=== PATIENT | female | born 1990 | race Caucasian/White ===

== ENCOUNTER → 2018-02-16 10:50 | Outpatient (CLI) | payer OTHER, SELFPAY ==
[2018-02-16 12:45] LABS: T4 Free Direct 1.03 ng/dL (0.76-1.46); Thyroid Stim Hormone (TSH) 3.04 uIU/mL (0.358-3.74)
== END ==
PROVIDERS: Family Provider Family Medicine; PCP Family Medicine; Visit Provider Family Medicine
DX: E03.9 Hypothyroidism, unspecified (principal)
CPT/HCPCS: 36415; 84439; 84443

== ENCOUNTER → 2019-02-06 | Outpatient (CLI) | payer OTHER, SELFPAY ==
[2019-02-06 16:35] LABS: T4 Total, Thyroxin 10.6 ug/dL (4.8-13.9); Thyroid Stim Hormone (TSH) 4.43 uIU/mL (0.358-3.74)
== END | disposition home or self-care (01) ==
LOC: MFPLAB 14:10
PROVIDERS: Family Provider Family Medicine; PCP Family Medicine; Referring Provider Family Medicine; Visit Provider Family Medicine
DX: E03.9 Hypothyroidism, unspecified (principal)
CPT/HCPCS: 36415; 84436; 84443

== ENCOUNTER → 2019-05-24 | Outpatient (CLI) | payer OTHER, SELFPAY ==
[2016-02-13 10:20] VITALS: BMI 32.5
[2019-05-24 16:08] LABS: T4 Total, Thyroxin 12.6 ug/dL (4.8-13.9); Thyroid Stim Hormone (TSH) 0.03 uIU/mL (0.358-3.74)
== END | disposition home or self-care (01) ==
LOC: MFPLAB 14:56
PROVIDERS: Family Provider Family Medicine; PCP Family Medicine; Referring Provider Family Medicine; Visit Provider Family Medicine
DX: E03.9 Hypothyroidism, unspecified (principal)
CPT/HCPCS: 36415; 84436; 84443

== ENCOUNTER → 2019-07-20 11:43 | Outpatient (CLI) | payer OTHER, SELFPAY ==
[2016-02-13 10:20] VITALS: BMI 32.5
[2019-07-20 14:35] LABS: T4 Total, Thyroxin 9.6 ug/dL (4.8-13.9); Thyroid Stim Hormone (TSH) 1.94 uIU/mL (0.358-3.74)
== END ==
PROVIDERS: Family Provider Family Medicine; PCP Family Medicine; Referring Provider Family Medicine; Visit Provider Family Medicine
DX: E03.9 Hypothyroidism, unspecified (principal)
CPT/HCPCS: 36415; 84436; 84443

== ENCOUNTER → 2020-02-26 | Outpatient (CLI) | payer OTHER, SELFPAY ==
[2016-02-13 10:20] VITALS: BMI 32.5
[2020-02-26 18:33] LABS: T4 Total, Thyroxin 9.1 ug/dL (4.8-13.9); Thyroid Stim Hormone (TSH) 1.39 uIU/mL (0.358-3.74)
== END | disposition home or self-care (01) ==
LOC: LABSPEC 11:00
PROVIDERS: PCP Family Medicine; Referring Provider Family Medicine; Visit Provider Family Medicine
DX: J02.9 Acute pharyngitis, unspecified (principal); E03.9 Hypothyroidism, unspecified
CPT/HCPCS: 36415; 84436; 84443; 87070

== ENCOUNTER → 2020-08-09 10:19 | Outpatient (CLI) | payer OTHER, SELFPAY ==
[2016-02-13 10:20] VITALS: BMI 32.5
[2020-08-09 12:00] LABS: Absolute Lymphocyte Count 1.52 X10^3/uL (0.83-4.51); Absolute Neutrophil Count 3.4 X10^3/uL (2.0-7.7); Basophil# 0.03 X10^3/uL; Basophil% 0.5 % (0-1); Eosinophils% 3.5 % (0-5); Hematocrit 36.8 % (37-47); Hemoglobin 12.5 g/dL (12.0-15.0); Lymphocyte # 1.52 X10^3/ul (4.0); Mean Corpuscular Hgb 30.5 pg (27.0-32.0); Mean Corpuscular Volume 89.8 fL (81-99); Mean Platelet Vol. 10.6 fl (6.2-12.0); Monocyte# 0.43 X10^3/uL; Monocyte% 7.6 % (0-10); NRBC Flagged by Analyzer 0 % (0-5); Neutrophil # 3.44 X10^3/uL (2.7-7.7); Platelet Count 302 K/mm3 (150-450); RBC Distribution Width CV 11.5 % (11.6-14.6); RBC Distribution Width SD 37.4 fl (35.1-43.9); White Blood Count 5.6 K/mm3 (4.4-11.0)
[2020-08-09 12:43] LABS: Vitamin B12 741 pg/mL (211-911)
[2020-08-09 14:03] LABS: AST(SGOT) 21 U/L (15-37); Alanine Aminotransfer ALT/SGPT 23 U/L (13-56); Albumin, Serum 3.8 g/dL (3.2-5.0); Alkaline Phosphatase 54 U/L (45-117); Anion Gap 8 (5-15); BUN 13 mg/dL (7-18); Calcium,Total 9.2 mg/dL (8.5-10.1); Chloride 107 mmol/L (98-107); Creatinine, Serum 0.72 mg/dL (0.55-1.02); EST Glomerular Filtration Rate 102 mL/min (>60); Est Glom Filt Rate - Afr Amer 123 mL/min (>60); Globulin 3.7 g/dL (2.2-4.2); Glucose 102 mg/dL (74-106); Potassium 3.8 mmol/L (3.5-5.1); Protein, Total 7.5 g/dL (6.4-8.2); Sodium Level 139 mmol/L (136-145); Thyroid Stim Hormone (TSH) 1.97 uIU/mL (0.358-3.74)
== END ==
PROVIDERS: PCP Family Medicine; Referring Provider Family Medicine; Visit Provider Family Medicine
DX: R20.2 Paresthesia of skin (principal); R20.0 Anesthesia of skin
CPT/HCPCS: 36415; 80053; 82607; 82746; 84443; 85025

== ENCOUNTER 2021-10-20 10:36 | Outpatient (CLI) | payer OTHER, SELFPAY ==
[2021-10-20 13:03] LABS: Cholesterol 222 mg/dL (200); High Density Lipoprotein 49 mg/dL; T4 Total, Thyroxin 10.7 ug/dL (4.8-13.9); Thyroid Stim Hormone (TSH) 2.29 uIU/mL (0.358-3.74); Triglycerides 92 mg/dL; Very Low Density Lipoprotein 18 mg/dL (5-40)
== END 2021-10-20 23:59 | disposition home or self-care (01) ==
LOC: MFPLAB 10:38
PROVIDERS: PCP Family Medicine; Referring Provider Family Medicine; Visit Provider Family Medicine
DX: E03.9 Hypothyroidism, unspecified (principal); Z13.220 Encounter for screening for lipoid disorders
CPT/HCPCS: 36415; 80061; 84436; 84443

== ENCOUNTER → 2022-10-20 | Outpatient (CLI) | payer OTHER, SELFPAY ==
[2022-10-20 13:15] LABS: T4 Total, Thyroxin 8.8 ug/dL (4.8-13.9); Thyroid Stim Hormone (TSH) 3.58 uIU/mL (0.358-3.74)
== END | disposition home or self-care (01) ==
LOC: MFPLAB 09:41
PROVIDERS: PCP Family Medicine; Referring Provider Family Medicine; Visit Provider Family Medicine
DX: E03.9 Hypothyroidism, unspecified (principal)
CPT/HCPCS: 36415; 84436; 84443

== ENCOUNTER → 2023-10-22 | Outpatient (CLI) | payer OTHER, SELFPAY ==
[2023-10-22 13:30] LABS: T4 Total, Thyroxin 10.9 ug/dL (4.8-13.9); Thyroid Stim Hormone (TSH) 0.91 uIU/mL (0.358-3.74)
== END | disposition home or self-care (01) ==
LOC: MFPLAB 10:00
PROVIDERS: PCP Family Medicine; Visit Provider Family Medicine
DX: E03.9 Hypothyroidism, unspecified (principal)
CPT/HCPCS: 36415; 84436; 84443

== ENCOUNTER → 2024-09-20 | Outpatient (CLI) | payer OTHER, SELFPAY ==
[2024-09-20 12:22] LABS: Absolute Lymphocyte Count 1.98 X10^3/uL (0.83-4.51); Absolute Neutrophil Count 4.3 X10^3/uL (2.0-7.7); Basophil# 0.06 X10^3/uL; Basophil% 0.8 % (0-1); Eosinophil# 0.34 X10^3/uL; Eosinophils% 4.7 % (0-5); Hematocrit 39.5 % (37-47); Hemoglobin 13.4 g/dL (12.0-15.0); Lymphocyte # 1.98 X10^3/ul (0.83-4.51); Lymphocyte % 27.5 % (19-41); Mean Corp Hgb Conc 33.9 g/dL (32-36); Mean Corpuscular Hgb 29.7 pg (27.0-32.0); Mean Corpuscular Volume 87.6 fL (81-99); Mean Platelet Vol. 10.4 fl (6.2-12.0); Monocyte# 0.52 X10^3/uL; Monocyte% 7.2 % (0-10); NRBC Flagged by Analyzer 0 % (0-5); Neutrophil # 4.28 X10^3/uL (2.7-7.7); Neutrophil % 59.4 % (47-70); Platelet Count 341 K/mm3 (150-450); RBC Distribution Width CV 11.9 % (11.6-14.6); RBC Distribution Width SD 38.6 fl (35.1-43.9); Red Blood Count 4.51 M/mm3 (4.2-5.4); White Blood Count 7.2 K/mm3 (4.4-11.0)
[2024-09-20 13:04] LABS: ALB/GLOB Ratio 1.4 RATIO (0.9-2.4); AST(SGOT) 29 U/L (<=31); Alanine Aminotransfer ALT/SGPT 23 U/L (<=34); Albumin, Serum 4.2 g/dL (3.5-5.0); Alkaline Phosphatase 67 U/L (35-104); Anion Gap 13 (5-15); BUN 12 mg/dL (4-19); BUN/Creat Ratio 15.2 RATIO (10-20); Calcium,Total 9.4 mg/dL (7.6-11.0); Carbon Dioxide 20.8 mmol/L (21.0-32.0); Chloride 105 mmol/L (98-108); Cholesterol 280 mg/dL (<=200); Creatinine, Serum 0.78 mg/dL (0.70-1.20); EST Glomerular Filtration Rate 104 (>60); Globulin 3.1 g/dL (2.2-4.2); Glucose 93 mg/dL (70-99); High Density Lipoprotein 40 mg/dL; Low Density Lipoprotein Calc. 214 mg/dL; Potassium 4.1 mmol/L (3.3-5.1); Protein, Total 7.3 g/dL (5.9-8.4); Sodium Level 139 mmol/L (133-145); Total Bilirubin 0.38 mg/dL (0.00-1.30); Triglycerides 133 mg/dL; Very Low Density Lipoprotein 27 mg/dL (5-40); cholesterol:hdl ratio screen 7.05
[2024-09-21 17:07] LABS: Lipoprotein A 203.4 nmol/L (<75.0)
== END | disposition home or self-care (01) ==
PROVIDERS: PCP Internal Medicine; Referring Provider Internal Medicine; Visit Provider Internal Medicine
DX: Z00.00 Encounter for general adult medical examination without abnormal findings (principal); Z82.49 Family history of ischemic heart disease and other diseases of the circulatory system; E03.9 Hypothyroidism, unspecified
CPT/HCPCS: 36415; 80053; 80061; 83695; 84443; 85025

== ENCOUNTER → 2024-10-17 | Outpatient (CLI) | payer OTHER, SELFPAY ==
[2024-10-17 13:55] LABS: ALB/GLOB Ratio 1.4 RATIO (0.9-2.4); AST(SGOT) 27 U/L (<=31); Alanine Aminotransfer ALT/SGPT 22 U/L (<=34); Albumin, Serum 4.1 g/dL (3.5-5.0); Alkaline Phosphatase 58 U/L (35-104); Anion Gap 13 (5-15); BUN 9 mg/dL (4-19); BUN/Creat Ratio 13.8 RATIO (10-20); Calcium,Total 8.9 mg/dL (7.6-11.0); Chloride 106 mmol/L (98-108); Cholesterol 145 mg/dL (<=200); Creatinine, Serum 0.69 mg/dL (0.70-1.20); EST Glomerular Filtration Rate 118 (>60); Globulin 2.9 g/dL (2.2-4.2); Glucose 90 mg/dL (70-99); High Density Lipoprotein 45 mg/dL; Low Density Lipoprotein Calc. 81 mg/dL; Potassium 4.1 mmol/L (3.3-5.1); Protein, Total 6.9 g/dL (5.9-8.4); Sodium Level 138 mmol/L (133-145); Triglycerides 95 mg/dL; Very Low Density Lipoprotein 19 mg/dL (5-40); cholesterol:hdl ratio screen 3.22
== END | disposition home or self-care (01) ==
LOC: BIMLAB 08:39
PROVIDERS: PCP Internal Medicine; Visit Provider Internal Medicine
DX: E78.5 Hyperlipidemia, unspecified (principal)
CPT/HCPCS: 36415; 80053; 80061

== ENCOUNTER → 2025-03-15 | Outpatient (CLI) | payer OTHER, SELFPAY ==
[2025-03-20 10:09] LABS: HPV APTIMA, High Risk Negative (Negative)
== END | disposition home or self-care (01) ==
LOC: LABSPEC 15:09
PROVIDERS: PCP Internal Medicine; Visit Provider Nurse Practitioner Family
DX: Z12.4 Encounter for screening for malignant neoplasm of cervix (principal)
CPT/HCPCS: 87624; 88175; G0145

== ENCOUNTER → 2025-03-26 | Outpatient (CLI) | payer OTHER, SELFPAY ==
[2025-03-26 12:53] LABS: AST(SGOT) 33 U/L (<=31); Alanine Aminotransfer ALT/SGPT 22 U/L (<=34); Albumin, Serum 4.2 g/dL (3.5-5.0); Alkaline Phosphatase 55 U/L (35-104); Anion Gap 11 (5-15); BUN 10 mg/dL (4-19); BUN/Creat Ratio 11.7 RATIO (10-20); Calcium,Total 9.4 mg/dL (7.6-11.0); Carbon Dioxide 21.3 mmol/L (21.0-32.0); Chloride 106 mmol/L (98-108); Cholesterol 156 mg/dL (<=200); Globulin 3.0 g/dL (2.2-4.2); Glucose 91 mg/dL (70-99); Low Density Lipoprotein Calc. 87 mg/dL; Potassium 4.2 mmol/L (3.3-5.1); Triglycerides 105 mg/dL; Very Low Density Lipoprotein 21 mg/dL (5-40); cholesterol:hdl ratio screen 3.24
== END | disposition home or self-care (01) ==
LOC: BIMLAB 09:19
PROVIDERS: PCP Internal Medicine; Referring Provider Internal Medicine; Visit Provider Internal Medicine
DX: E78.5 Hyperlipidemia, unspecified (principal)
CPT/HCPCS: 36415; 80053; 80061

== ENCOUNTER → 2025-06-06 | Outpatient (CLI) | payer OTHER, SELFPAY ==
--- OUTSIDE RECORDS SUMMARY | 2025-06-06 12:32 | XMS RPT_ITS | CCD ---
Author Organization [facility] Care Team Providers Care Rehabilitation Clerk Name Role Phone Meghan May Primary Care Provider [phone] Lalo LANDON, Dr. Meghan Harp Primary Care Provider Lalo LANDON, Dr. Meghan Harp Referring Provider Rocio LANDON, Dr. Reyes Attending Provider Rocio LANDON, Dr. Reyes Primary Care Provider Rocio LANDON, Dr. Reyes Referring Provider Rocio LANDON, Dr. Reyes Primary Care Provider Rocio LANDON, Dr. Reyes Referring Provider Shereen Martins Attending Provider Rocio LANDON, Dr. Reyes Attending Provider Oleghe, Efewongbe Primary Care Unavailable Oleghe, Efewongbe Attending Unavailable Oleghe, Efewongbe Referring Unavailable Oleghe, Efewongbe Primary Care Unavailable Shereen Bledsoe Attending Unavailable Oleghe, Efewongbe Referring Unavailable Meghan May Primary Care Unavailable Meghan May Referring Unavailable Oleghe, Efewongbe Attending Unavailable Oleghe, Efewongbe Attending Unavailable Oleghe, Efewongbe Referring Unavailable Oleghe, Efewongbe Primary Care Unavailable Oleghe, Efewongbe Attending Unavailable Oleghe, Efewongbe Referring Unavailable Oleghe, Efewongbe Primary Care Unavailable Shereen Bledsoe Attending Unavailable Oleghe, Efewongbe Primary Care Unavailable Oleghe, Efewongbe Primary Care Unavailable Isaías Chanongbe Attending Unavailable Rocio LANDON, Dr. Reyes Primary Care Physician Shereen Martins Attending Physician [phone] Rocio LANDON, Dr. Reyes Attending Physician OLESISSYE, EFEWONGBE B Referring Unavailable OLEGHE, EFEWONGBE B Primary Care Unavailable BRIAN SZYMANSKI Referring Unavailable OLEGHE, EFEWONGBE B Primary Care Unavailable BRIAN SZYMANSKI Attending Unavailable OLESISSYE, EFEWONGBE B Referring Unavailable OLESISSYE, EFEWONGBE B Primary Care Unavailable Allergies Allergy Classification Reported Allergen(s) Allergy Type Date of Onset Reaction(s) Facility (10 sources) Contrast media; Translations: [red dye] Propensity to adverse reactions 6 Other [facility] (9 sources) Latex Propensity to adverse reactions 6 Unknown [facility] (10 sources) Shellfish; Translations: [shellfish derived] Drug Intolerance 3 Shortness of Breath [facility] Work Phone: (3 sources) D And C Red No.40; Translations: [D AND C RED NO.40] Drug Intolerance 3 Rash, Intolerance [facility] Work Phone: (1 source) Latex Drug allergy (disorder) 5 [facility] Repository Medications Current Medications Medication Drug Class(es) Dates Sig (Normalized) Sig (Original) cetirizine hydrochloride 10 mg oral capsule (11 sources) Histamine-1 Receptor Antagonist Start: 02-11-2016 take 1 capsule by mouth once daily Comment on above: Take by mouth once d aily. cholecalciferol 0.025 mg oral capsule (4 sources) Vitamin D Start: 03-15-2025 take 1 capsule by mouth once daily Norethindrone Ac-Eth Estradiol (3 sources) Estrogen Start: 03-15-2025 Start: 03-15-2025 Norethindrone Ac-Eth Estradiol (Loestrin 07/31 (21)) 1-20 mg- mcg tablet Active 1 {tbl} PO daily 63 March 15, 2025 12:00am ferrous sulfate 325 mg oral tablet (6 sources) Start: 09-20-2024 take 1 tablet by mouth once daily fluticasone propionate 0.05 mg/actuat metered dose nasal spray (6 sources) Corticosteroid Start: 09-20-2024 levothyroxine sodium 0.1 mg oral tablet (12 sources) l-Thyroxine Start: 12-08-2024 take 1 tablet by mouth once daily Start: 09-20-2024 End: 12-08-2024 Levothyroxine 100 mcg tablet Discontinued ug PO DAILY September 20, 2024 12:00am December 08, 2024 3:18pm Start: 06-13-2023 levothyroxine (SYNTHROID) 100 mcg tablet 06/13/2023 Active Multivitamin capsule (2 sources) take 1 capsule by [facility] once daily Multivitamin capsule Take 1 capsule by mouth once daily. Active take 1 capsule by mouth once asim ly Multivitamin capsule Take 1 capsule by mouth once daily. 0 Active Comment on above: Take 1 capsule by mo [facility] once daily. rosuvastatin calcium 10 mg oral tablet (10 sources) HMG-CoA Reductase Inhibitor Start: 09-21-2024 End: 01-02-2025 take 1 tablet by mouth once daily Completed/Discontinued Medications Medication Drug Class(es) Dates Sig (Normalized) Sig (Original) acetaminophen 325 mg / oxyCODONE hydrochloride 5 mg oral tablet (9 sources) Opioid Agonist Start: 02-14-2016 End: 09-20-2024 Oxycodone-Acetamino phen 1 TABLET tablet Discontinued 1 {tbl} PO EVERY 4 HOURS NEEDED as needed for Pain 20 0 February 14, 2016 12:00am September 20, 2024 9:38am Start: 02-14-2016 [facility] four hours as needed Oxycodone-Acetaminophen Active 1 TABLET PO EVERY 4 HOURS NEEDED February 14, 2016 12:00am calcium ascorbate 500 mg oral tablet (6 sources) Start: 09-20-2024 End: 03-15-2025 take 1 tablet by mouth once daily Ascorbate Calcium (Vitamin C) 500 mg tablet Discontinued 500 mg PO daily September 20, 2024 12:00am March 15, 2025 11:01am DULoxetine 60 mg delayed release oral capsule (20 sources) Serotonin and Norepinephrine Reuptake Inhibitor Start: 06-10-2023 take 1 capsule by mouth once daily Start: 04-19-2023 End: 01-15-2025 take 1 capsule by mouth once daily Duloxetine 60 mg capsule,delayed release(DR/EC) Discontinued 60 mg PO daily 90 October 17, 2024 12:51pm January 15, 2025 9:04am Uh-Se-Mtpp-Fa-Ca Carb-Vit K (Women's Multivitamin) 18 mg-400 mcg- 500 mg-50 mcg tablet (6 sources) Start: 09-20-2024 End: 03-15-2025 Ov-Ws-Tkfl-Fa-Ca Carb-Vit K (Women's Multivitamin) 18 mg-400 mcg- 500 mg-50 mcg tablet Discontinued {tbl} PO September 20, 2024 12:00am March 15, 2025 11:01am Start: 09-20-2024 Fr-Ax-Wfsz-Fa- Ca Carb-Vit K (Women's Multivitamin) 18 mg-400 mcg- 500 mg-50 mcg tablet Active {tbl} PO September 20, 2024 12:00am Problems Active Problems Problem Classification Problem Date Documented Date Episodic/Chronic Anxiety disorders (9 sources) Mixed anxiety and depressive disorder; Translations: [Anxiety disorder, unspecified] 09-20-2024 Chronic Complications of surgical procedures or medical care (1 source) Postprocedural hypothyroidism; Translations: [Postoperative hypothyroidism] Onset: 04-06-2025 Chronic Contraceptive and procreative management (9 sources) Patient encounter status; Translations: [Encounter for contraceptive management, unspecified] Onset: 03-15-2025 03-15-2025 Episodic Disorders of lipid metabolism (13 sources) Mixed hyperlipidemia; Translations: [Mixed hyperlipidemia] Onset: 04-03-2025 09-27-2024 Chronic Other nutritional; endocrine; and metabolic disorders (1 source) Other obesity due to excess calories; Translations: [Class 1 obesity due to excess calories without serious comorbidity with body mass index (BMI) of 33.0 to 33.9 in adult] Onset: 04-06-2025 Chronic Other nutritional; endocrine; and metabolic disorders (1 source) Body mass index (BMI) 33.0-33.9, adult; Translations: [Class 1 obesity due to excess calories without serious comorbidity with body mass index (BMI) of 33.0 to 33.9 in adult] Onset: 04-06-2025 Chronic Other screening for suspected conditions (not mental disorders or infectious disease) (1 source) Encounter for screening for malignant neoplasm of cervix; Translations: [Encounter for screening for malignant neoplasm of cervix] Onset: 03-21-2025 Episodic Residual codes; unclassified (9 sources) FH: premature coronary heart disease; Translations: [Family history of ischemic heart disease and other diseases of the circulatory system] 09-20-2024 Episodic Thyroid disorders (9 sources) Hypothyroidism; Translations: [Hypothyroidism, unspecified] Onset: 09-20-2024 09-20-2024 Chronic Unclassified (2 sources) Z00.00 - Encounter for general adult medical examination without abnormal findings Unclassified (1 source) Class 1 obesity due to excess calories without serious comorbidity with body mass index (BMI) of 33.0 to 33.9 in adult; Translations: [Class 1 obesity due to excess calories without serious comorbidity with body mass index (BMI) of 33.0 to 33.9 in adult] Onset: 04-06-2025 Past or Other Problems Problem Classification Problem Date Documented Da te Episodic/Chronic Residual codes; unclassified (1 source) Family history of ischemic heart disease and other diseases of the circulatory system; Translations: [Family history of ischemic heart disease and other diseases of the circulatory system] Onset: 09-20-2024 Episodic Results Test Name Value Interpretation Reference Range Facility [facility] 04-06-2025 CNOV Office Visit (CARD P ) HOLLY RAYO ([id number]) 1990 F Date Time Provider Department 04/06/25 9:45 AM BRIAN SZYMANSKI P During your visit today, we recorded the following information about you: Pulse Blood pressure Weight Height 88/minute 111/77 95.3 kg 1.676 m Brian Szymanski MD 04/06/2025 10:11 AM Formerly [facility] [employer] Merrick Reynoso Department of Cardiovascular Medicine SECTION OF PREVENTIVE CARDIOLOGY Date: 04/06/2025 Patient: Holly Rayo : 1990 CHIEF COMPLAINT: Consultation HISTORY OF PRESENT CARDIOVASCULAR ILLNESS: I had the pleasure of seeing Holly Rayo today in the Prevent[facility]iology [facility] for a cardiac consultation at the request of Dr. Chan. A copy of this consultation note will be provided to the requesting physician by way of shared Medical record or letter to requesting physician via US mail. The patient is a 35-year-old female with a history of hypercholesterolemia and hypothyroidism, presenting for evaluation of elevated LDL cholesterol levels. The patient was referred by her primary care physician for evaluation of hypercholesterolemia. She reports that her LDL cholesterol was elevated in 2021 and also this September, prompting the initiation of rosuvastatin 10 mg in September. Recent lab results from 03/26/2024 show an LDL level of 87 mg/dL, a significant improvement from 214 mg/dL in September. An Lp(a) level was also elevated at 203 nmol/L (reference range <75 nmol/L). 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 She is currently taking levothyroxine 100 mcg daily. Her TSH level in September was 1.7 mIU/L. She reports heavy menstrual bleeding but denies any other bleeding issues or stomach ulcers. She is not currently planning to conceive and has no children. She engages in regular physical activity, including walking, and plans to resume a gym routine. Her BMI falls within the obesity class 1 category. She has a family history of early cardiovascular disease, including a myocardial infarction in her father at age 45 and a premature myocardial infarction in her paternal grandmother. Current medications include rosuvastatin 10 mg daily and levothyroxine 100 mcg daily. 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 rosuvastatin (CRESTOR) 10 mg tablet Take 1 tablet by mouth once daily. fluticasone propionate (FLONASE NASAL) Use in the nose two times a day. levothyroxine (SYNTHROID) 100 mcg tablet DULoxetine (CYMBALTA) 60 mg capsule DULoxetine (CYMBALTA) 30 mg capsule Cetirizine 10 mg cap Take by mouth once daily. Multivitamin capsule Take 1 capsule by mouth once daily. (Patient not taking: Reported on 04/06/2025) No current facility-administered medications for this visit. ALLERGIES: ALLERGIES Allergen Reactions D And C Red No.40 Rash, Intolerance headache, burning in nose Shellfish Derived Shortness of Breath REVIEW OF SYSTEMS: CONSTITUTIONAL: No weight loss, malaise or fevers. HEENT: Negative for frequent or significant headaches, No changes in hearing or vision, no nose bleeds or other nasal problems. RESPIRATORY: Negative for cough, wheezing, or shortness of breath CARDIOVASCULAR: Negative for chest pain, leg swelling or palpitations GI: Negative for abdominal discomfort, blood in stools or black stools or change in bowel habits. : No history of dysuria, frequency, or incontinence and No difficulty urination, nocturia >1 times per night or hematuria. MUSCULOSKELETAL: Negative for joint pain or swelling, back pain or muscle pain. ENDOCRINE: Negative for cold or heat intolerance, polyuria, polydipsia and goiter HEMATOLOGIC/LYMPHATIC: Negative for prolonged bleeding, bruising easily or swollen nodes. NEUROLOGIC: No history or headaches, syncope, paralysis, seizures or tremors. INTEGUMENTARY: Negative (more content not included)... Normal [facility] ECG COMPLETEon 04-06-2025 ECG COMPLETE Ventricular Rate : 8 1 BPM Atrial Rate : 81 BPM P-R Interval : 154 ms QRS Duration : 70 ms Q-T Interval : 344 ms QTC Calculation(Bazett) : 399 ms Calculated P [place] : 21 degrees Calculated R [place] : 16 degrees Calculated T [place] : 34 degrees NORMAL SINUS RHYTHM WITH SINUS ARRHYTHMIA NORMAL ECG Confirmed by RADHA CARRILLO MD ([id number]) on 05/09/2025 7:49:27 PM NAME : HOLLY RAYO PID : [id number] : 1990 Gender : Female Race : ORD : [id number] Procedure Date : Apr 06 2025 09:40:58 Edit Date : May 09 2025 19:49:29 Diagnosis: NORMAL SINUS RHYTHM WITH SINUS ARRHYTHMIA NORMAL ECG Confirmed by RADHA CARRILLO MD ([id number]) on 05/09/2025 7:49:27 PM Test Reason : Location : [facility] : [facility] J-4 Overread By : RADHA CARRILLO MD Edited By : RADHA CARRILLO MD Referred By : BRIAN SZYMANSKI Acquired by : FAITH SIERRA [facility] Anion gap in Serum or Plasma Ordered By: Amy Chan on 03-26-2025 Anion gap [Moles/Vol] 11 mmol/L 11-23 [facility] BUN/creatinine ratioOrdered By: Amy Chan on 03-26-2025 Urea nitrogen/Creatinine [Mass ratio] 11.7 mg/mg 10- [facility] Bilirubin, totalOrdered By: Amy Chan on 03-26-2025 Bilirubin [Mass/Vol] 0.39 mg/dL 0.00-1.30 [facility] Calculated very low density lipoprotein (VLDL) cholesterol measurementOrdered By: Amy Chan on 03-26-2025 Calculated very low density lipoprotein (VLDL) cholesterol measurement 21 mg/dL 5-40 [facility] Carbon dioxide, total [Moles /volume] in Central venous bloodOrdered By: Amy Chan on 03-26-2025 CO2 [Moles/Vol] 21.3 mmol/L 21.0-32.0 [facility] Chloride assayOrdered By: Betty Chan on 03-26-2025 Chloride [Moles/Vol] 106 mmol/L 98-108 [facility] Comprehensive Metabolic Prof ilon 03-26-2025 Albumin [Mass/Vol] 4.2 g/dL Normal 3.5-5.0 [facility] Comment on above: Performed By: #### L 500.4100, L500.4050 #### [facility] [address] [place], [address] Albumin/Globulin [Mass ratio] 1.4 {ratio} Normal 0.9-2.4 [facility] Comment on above: Performed By: #### L 500.4100, L500.4050 #### [facility] [address] [place], [address] ALK PHOS 55 U/L Normal 35-104 [facility] Comment on above: Performed By: #### L 500.4100, L500.4050 #### [facility] [address] [place], [address] ALT [Catalytic activity/Vol] 22 U/L Normal <=34 [facility] Comment on above: Performed By: #### L 500.4100, L500.4050 #### [facility] [address] [place], [address] AST [Catalytic activity/Vol] 33 U/L High <=31 [facility] Comment on above: Performed By: #### L 500.4100, L500.4050 #### [facility] [address] [place], [address] Bilirubin [Mass/Vol] 0.39 mg/dL Normal 0.00-1.30 [facility] Comment on above: Performed By: #### L 500.4100, L500.4050 #### [facility] [address] [place], [address] BUN/CRE 11.7 RATIO Normal 10-20 [facility] Comment on above: Performed By: #### L 500.4100, L500.4050 #### [facility] [address] [place], [address] Calcium [Mass/Vol] 9.4 mg/dL Normal 7.6-11.0 [facility] Comment on above: Performed By: #### L 500.4100, L500.4050 #### [facility] [address] [place], [address] Chloride [Moles/Vol] 106 mmol/L Normal 98-108 [facility] Comment on above: Performed By: #### L 500.4100, L500.4050 #### [facility] [address] [place], [address] CO2 [Moles/Vol] 21.3 mmol/L Normal 21.0-32.0 [facility] Comment on above: Performed By: #### L 500.4100, L500.4050 #### [facility] [address] [place], [address] Creatinine [Mass/Vol] 0.81 mg/dL Normal 0.70-1.20 [facility] Comment on above: Performed By: #### L 500.4100, L500.4050 #### [facility] [address] [place], [address] GAP 11 Normal 5-15 [facility] Comment on above: Performed By: #### L 500.4100, L500.4050 #### [facility] [address] [place], [address] GFR/1.73 sq M.predicted among non-blacks MDRD (S/P/Bld) [Vol rate/Area] 98 mL/min/{1.73_m2} Normal >60 [facility] Comment on above: Result Comment: mL/m in/1.73m2 CKD-EPI Creatinine Equation (2020) Performed By: #### L 500.4100, L500.4050 #### [facility] [address] [place], [address] Globulin (S) [Mass/Vol] 3.0 g/dL Normal 2.2-4.2 [facility] Comment on above: Performed By: #### L 500.4100, L500.4050 #### [facility] [address] [place], [address] Glucose [Mass/Vol] 91 mg/dL Normal 70-99 [facility] Comment on above: Performed By: #### L 500.4100, L500.4050 #### [facility] [address] [place], [address] Potassium [Moles/Vol] 4.2 mmol/L Normal 3.3-5.1 [facility] Comment on above: Performed By: #### L 500.4100, L500.4050 #### [facility] [address] [place], [address] Sodium [Moles/Vol] 138 mmol/L Normal 133-145 [facility] Comment on above: Performed By: #### L 500.4100, L500.4050 #### [facility] [address] [place], [address] T PROT 7.3 g/dL Normal 5.9-8.4 [facility] Comment on above: Performed By: #### L 500.4100, L500.4050 #### [facility] [address] [place], [address] Urea nitrogen [Mass/Vol] 10 mg/dL Normal 4-19 [facility] Comment on above: Performed By: #### L 500.4100, L500.4050 #### [facility] [address] [place], [address] Glomerular filtration rate ( GFR) estimation/1.73 sq m using serum, plasma, or whole bOrdered By: Amy Chan on 03-26-2025 GFR/1.73 sq M.predicted among non-blacks MDRD (S/P/Bld) [Vol rate/Area] 98 mL/min/{1.73_m2} >60 [facility] Comment on above: mL/min/1.73m2 CKD-EP I Creatinine Equation (2020) Internal Medicine Office Vis heather 03-26-2025 Internal Medicine Office Visit [facility] [address] [place] [address] [place] [address] OFFICE VISIT Date of Service: 03/26/25 MR#: [id number] Acct: [id number] Name: HOLLY RAYO Rep #: [id number] : 1990 Provider: Dr. Amy borges MD Age/Sex: 35/F [place] [facility] [place]: Signed Intake Vital Signs 09/20/24 09:47 03/15/25 10:59 03/26/25 09:08 Height 5 ft 6.5 in 5 ft 6.5 in 5 ft 6.5 in Weight: 213 lb BMI 33.8 BP 133/82 H Blood Pressure Location Lt brachial Position Sitting Respiration 18 Pulse 94 Pulse Source Monitor Temp 96.8 F L Temp Source Temporal Pulse Oximetry (%) 100 Oxygen Delivery Method room air Intake Visit Reasons: 6 M FU Chief Complaint: 6 M FU Is patient in pain?: No Allergies shellfish derived Allergy (Severe, Verified 03/26/25 09:09) Anaphylaxis latex Adverse Reaction (Verified 03/26/25 09:09) Unknown red dye Adverse Reaction (Verified 03/26/25 09:09) Other Medications ???Medication ???Instructions ???Recorded ???Confirmed ???Type cetirizine 10 mg capsule (Zyrtec) 10 mg PO DAILY 02/11/16 03/26/25 History duloxetine 30 mg capsule,delayed 30 mg PO QDAY 09/20/24 03/26/25 Hi story release ferrous sulfate 325 mg (65 mg 325 mg PO QDAY 09/20/24 03/26/25 H istory iron) tablet (FeroSul) fluticasone propionate 50 1 spray intranasal BID 09/20/24 History mcg/actuation nasal spray,suspension levothyroxine 100 mcg tablet 100 mcg PO DAILY #90 tabs 12/08/24 03/26/25 Rx rosuvastatin 10 mg tablet 10 mg PO QDAY #30 tabs 01/02/25 Rx duloxetine 60 mg capsule,delayed 60 mg PO QDAY #90 caps 01/15/25 Rx release cholecalciferol (vitamin D3) 25 25 mcg PO QDAY 03/15/25 03/26/25 H istory mcg (1,000 unit) capsule norethindrone acetate 1 mg-ethinyl 1 tab PO QDAY #63 tabs 03/15/25 03/26/25 Rx estradiol 20 mcg tablet (Loestrin) PFSH Medical History Hyperlipidemia Anxiety and depression Family history of early CAD Preventative health care Anxiety Hypothyroid Surgical History S/P tonsillectomy S/P partial thyroidectomy Family History Mother Asthma Arthritis Father Diabetes Heart disease Hypertension Myocardial infarction Hyperlipidemia Grandfather Lupus Grandfather Kidney disease Social History adopted: No household members: none number of children: 0 current occupational status: employed current occupation: [employer] pets and animals: No sexually active: Yes Smoking Status: Never smoker alcohol intake: never substance use type: does not use caffeine: Yes (1-2) Type: coffee and tea eating out: rarely or never during the past year weight has: increased > 10 lbs what type of physical activity do you participate in: walking frequency: 1-2 times per week lexii/shinto: Rastafarian seatbelt use: always do you feel safe at home: Yes additional social history: Boyfriend- Jalil. Public Health Researcher [facility] HPI Chief Complaint: 6 M FU Details: HOLLY RAYO, is a 35-year-old female presenting with management of hypercholesterolemia and follow- up of her chronic conditions. Chronic history of hyperlipidemia/choleste rol anemia. Had a lipid profile in September, with a total cholesterol level of 280 mg/dL. Started on rosuvastatin and by October, this had decreased to 145 mg/dL, indicating a positive response to treatment. Currently on rosuvastatin which she states that she is taking as prescribed. The patient reports no adverse effects, such as muscle pain or weakness, due to the medication. Other chronic medical conditions are stable. Attestation: Documentation on this patient encounter was supported using ambient scribe technology/ voice AI technology. The patient consented to recording for the purpose of documenting the encounter. Provider reviewed content of the generated note prior to signature. ROS Const Constitutional: No body ache, chills, excessive sweating, fatigue, fever(s), frequent falls, headache(s), snoring, weight change, sleep problems, abnormal sleep pattern or change in appetite Eyes Eyes: No blurry vision, change in vision, vision loss, dry eyes, eye pain or Light sensitivity ENT ENT: No abnormal hearing, ear or mastoid pain, tinnitus, nasal congestion, headache(s), neck pain or sore throat Resp Respiratory: No cough, excessive phlegm production, hemoptysis, shortness of breath, snoring or wheezing Cardio Cardiology: No chest pain at rest, chest pain with exertion, excessive sweating, shortness of breath, dyspnea on exertion, lightheadedness, orth (more content not included)... Normal [facility] LDL calc ser/plasOrdered By: Amy Chan on 03-26-2025 Cholesterol in LDL [Mass/Vol] 87 mg/dL [facility] Comment on above: Lrpvsrtjwz=481-218 m g/dL & Higher Kwgx=885 mg/dL or greaterFriedwald Equation for LDL-C Laboratory - Chemistry and C hemistry - challengeOrdered By: Amy Chan on 03-26-2025 AST [Catalytic activity/Vol] 33 U/L High <32 [facility] Lipid Profileon 03-26-2025 CHOL:HDL 3.24 Normal [facility] Comment on above: Performed By: #### L 500.4100, L500.4050 #### [facility] [address] [place], [address] Cholesterol [Mass/Vol] 156 mg/dL Normal <=200 [facility] Comment on above: Result Comment: Chol esterol level, Desirable <200 mg/dL Borderline high cholesterol 200-239 mg/dL High cholesterol >=240 mg/dL Recommendations of the NCEP Adult Treatment Panel for the following risk-cutoff thresholds for the [place] population. Performed By: #### L 500.4100, L500.4050 #### [facility] [address] [place], [address] Cholesterol in HDL [Mass/Vol] 48 mg/dL Normal [facility] Comment on above: Result Comment: Danika onal Cholesterol Education Program (NCEP) guidelines: <40 mg/dL: Low HDL-cholesterol (major risk factor for CHD) >= 60 mg/dL: High HDL-cholesterol (negative risk factor for CHD) HDL-cholesterol is affected by a number of factors, e.g. smoking, exercise, hormones, sex and age. Performed By: #### L 500.4100, L500.4050 #### [facility] [address] [place], [address] Cholesterol in LDL [Mass/Vol] 87 mg/dL Normal [facility] Comment on above: Result Comment: Bord bxtcvh=515-654 mg/dL Higher Girb=808 mg/dL or greater Friedwald Equation for LDL-C Performed By: #### L 500.4100, L500.4050 #### [facility] [address] [place], [address] Cholesterol in VLDL [Mass/Vol] 21 mg/dL Normal 5-40 [facility] Comment on above: Performed By: #### L 500.4100, L500.4050 #### [facility] [address] [place], [address] Triglyceride [Mass/Vol] 105 mg/dL Normal [facility] Comment on above: Result Comment: The drugs N-Acetylcysteine and Metamizole may falsely depress this assay. Normal range: <150 mg/dL Borderline High: 150-199 mg/dL High: 200-499 mg/dL Very High: >500 mg/dL Performed By: #### L 500.4100, L500.4050 #### [facility] [address] [place], [address] Potassium measurement (mass/ volume)Ordered By: Amy Chan on 03-26-2025 Potassium (Unsp spec) [Mass/Vol] 4.2 mmol/L 3.3-5.1 [facility] Screening total cholesterol/ high density lipoprotein (HDL) cholesterol ratioOrdered By: Amy Chan on 03-26-2025 Cholesterol.total/Norma sterol in HDL [Mass ratio] 3.24 {ratio} [facility] Serum creatinine measurement (mass/volume)Ordered By: Amy Chan on 03-26-2025 Creatinine [Mass/Vol] 0.81 mg/dL 0.70-1.20 [facility] Serum globulin measurementOr dered By: Amy Chan on 03-26-2025 Globulin (S) [Mass/Vol] 3.0 g/dL 2.2-4.2 [facility] Serum glucose measurement (m ass/volume)Ordered By: Amy Chan on 03-26-2025 Glucose [Mass/Vol] 91 mg/dL 70-99 [facility] Serum or plasma alanine back otransferase (ALT) measurementOrdered By: Amy Chan on 03-26-2025 ALT [Catalytic activity/Vol] 22 U/L <35 [facility] Serum or plasma albumin rodolfo urement (mass/volume)Ordered By: Amy Chan 03-26-2025 Albumin [Mass/Vol] 4.2 g/dL 3.5-5.0 [facility] Serum or plasma albumin/glob ulin mass ratioOrdered By: Amy Chan 03-26-2025 Albumin/Globulin [Mass ratio] 1.4 {ratio} 0.9-2.4 [facility] Serum or plasma alkaline latrell sphatase measurementOrdered By: Amy Chan 03-26-2025 ALP [Catalytic activity/Vol] 55 U/L 35-104 [facility] Serum or plasma calcium rodolfo urement (mass/volume)Ordered By: Amy Chan on 03-26-2025 Calcium [Mass/Vol] 9.4 mg/dL 7.6-11.0 [facility] Serum or plasma cholesterol in HDL measurement (mass/volume)Ordered By: Amy Chan 03-26-2025 Cholesterol in HDL [Mass/Vol] 48 mg/dL >40 [facility] Comment on above: National Cholesterol Education Program (NCEP) guidelines:<40 mg/dL: Low HDL-cholesterol (major risk factor for CHD)>= 60 mg/dL: High HDL-cholesterol (negative risk factor for CHD)HDL-cholesterol is affected by a number of factors, e.g. smoking, exercise, hormones, sex and age. Serum or plasma cholesterol measurement (mass/volume)Ordered By: Amy Chan on 03-26-2025 Cholesterol [Mass/Vol] 156 mg/dL <201 [facility] Comment on above: Cholesterol level, D esirable <200 mg/dLBorderline high cholesterol 200-239 mg/dLHigh cholesterol >=240 mg/dLRecommendations of the NCEP Adult Treatment Panel for the following risk-cutoff thresholds for the [place] population. Serum or plasma urea nitroge n measurement (mass/volume)Ordered By: Amy Chan on 03-26-2025 Urea nitrogen [Mass/Vol] 10 mg/dL 4-19 [facility] Sodium levelOrdered By: Isaías ramoslars Rocio on 03-26-2025 Sodium [Moles/Vol] 138 mmol/L 133-145 [facility] Total proteinOrdered By: Mono Chan on 03-26-2025 Protein [Mass/Vol] 7.3 g/dL 5.9-8.4 [facility] Triglycerides measurementOrd ered By: Amy Chan on 03-26-2025 Triglyceride [Mass/Vol] 105 mg/dL <199 [facility] Comment on above: The drugs N-Acetylcy steine and Metamizole may falsely depress this assay. Normal range: <150 mg/dLBorderline High: 150-199 mg/dLHigh: 200-499 mg/dLVery High: >500 mg/dL PAP IG HPV APTIMA 16/18,45on 03-20-2025 ADEQ Comment Normal . [facility] Comment on above: Order Comment: Speci men Comment: [id number] Specimen Comment: No. of containers..01 ThinPrep Vial Result Comment: Sati sfactory for evaluation. Endocervical and/or squamous metaplastic cells (endocervical component) are present. Performed By: #### L 7400.0280 #### [facility] [address] [place], [address] COMM . Normal . [facility] Comment on above: Order Comment: Speci men Comment: [id number] Specimen Comment: No. of containers..01 ThinPrep Vial Performed By: #### L 7400.0280 #### [facility] [address] [place], [address] COMMENT Comment Normal . [facility] Comment on above: Order Comment: Speci men Comment: [id number] Specimen Comment: No. of containers..01 ThinPrep Vial Result Comment: This liquid based ThinPrep(R) pap test was screened with the use of an image guided system. Performed By: #### L 7400.0280 #### [facility] [address] [place], [address] DIAG Comment Normal . [facility] Comment on above: Order Comment: Speci men Comment: [id number] Specimen Comment: No. of containers..01 ThinPrep Vial Result Comment: NEGA TIVE FOR INTRAEPITHELIAL LESION OR MALIGNANCY. Performed By: #### L 7400.0280 #### [facility] [address] [place], [address] HPV APTIMA, HR Negative Normal Negative [facility] Comment on above: Order Comment: Speci men Comment: [id number] Specimen Comment: No. of containers..01 ThinPrep Vial Result Comment: This nucleic acid amplification test detects fourteen high- risk HPV types (16,18,31,33,35,39,45,51,52,56,58,59,66,68) without differentiation. Performed By: #### L 7400.0280 #### [facility] [address] [place], [place], [address] HPV Mayra Rfx Comment Normal . [facility] Comment on above: Order Comment: Speci men Comment: [id number] Specimen Comment: No. of containers..01 ThinPrep Vial Result Comment: Crit eria not met, HPV Genotype not performed. Performed at: - [facility] [id number] Green [employer] Marker: Izzy Smart MD, Phone: [phone] Performed at: = - [facility] [address] [id number] [employer] Marker: Izzy Smart MD, Phone: [phone] Performed By: #### L 7400.0280 #### [facility] [address] [place], [address] PAPSMR Comment Normal . [facility] Comment on above: Order Comment: Speci men Comment: [id number] Specimen Comment: No. of containers..01 ThinPrep Vial Result Comment: The Pap smear is a screening test designed to aid in the detection of premalignant and malignant conditions of the uterine cervix. It is not a diagnostic procedure and should not be used as the sole means of detecting cervical cancer. Both false-positive and false-negative reports do occur. Performed By: #### L 7400.0280 #### [facility] [address] [place], [place], [id number] PERFORM Comment Normal . [facility] Comment on above: Order Comment: Speci men Comment: [id number] Specimen Comment: No. of containers..01 ThinPrep Vial Result Comment: Ashia Mota, Arc Cutter Plasma Arc (ASCP) Performed By: #### L 7400.0280 #### [facility] [address] [place], [place], [id number] Cervical or vaginal specimen microscopic examination by liquid based cytology (reportOrdered By: Shereen Bledsoe on 03-15-2025 Cytology report Cyto stain.thin prep Doc (Cvx/Vag) Comment . [facility] Comment on above: Criteria not met, HP V Genotype not performed.Performed at: - [facility] [id number] Director: Izzy Smart MD, Phone: [phone] at: = - [facility] [address] [id number] Director: Izzy Smart MD, Phone: [phone] Cervical or vagninal specime n microscopic examination by cytology stain (reported asOrdered By: Shereen Bledsoe on 03-15-2025 Cytology report Cyto stain Doc (Cvx/Vag) Comment . [facility] Comment on above: The Pap smear is a s creening test designed to aid in thedetection of premalignant and malignant conditions of theuterine cervix. It is not a diagnostic procedure andshould not be used as the sole means of detecting cervicalcancer. Both false-positive and false-negative reports dooccur. Detection in cervical specim en of any of human papilloma virus (HPV) 16, 18, 31, 33,Ordered By: Shereen Bledsoe on 03-15-2025 HPV 16+18+31+33+35+39+45+51 +52+56+58+59+66+68 DNA Probe+sig amp Ql (Cvx) Negative Negative [facility] Comment on above: This nucleic acid am plification test detects fourteen high-risk HPV types (16,18,31,33,35,39,45,51,52,56,58,59,66,68)without differentiation. Laboratory - Chemistry and C hemistry - challengeOrdered By: Shereen Bledsoe on 03-15-2025 HCG ( test) Ql (U) Negative [facility] Laboratory - CytologyOrdered By: Shereen Bledsoe on 03-15-2025 Arc Cutter Plasma Arc Cyto stain Nom (Cvx/Vag) [ID] Comment . [facility] Comment on above: Ashia Mota, Enriquelo gist (ASCP) Laboratory - Miscellaneous t estsOrdered By: Shereen Bledsoe on 03-15-2025 Service comment (Unsp spec) [Interp] . . [facility] No Panel InformationOrdered By: Shereen Bledsoe on 03-15-2025 Pap Smear Specimen Adequacy Comment . [facility] Comment on above: Satisfactory for janina luation. Endocervical and/or squamous metaplasticcells (endocervical component) are present. Radiologic Technologist Chief Office Visit Reporton 03-15-2025 Radiologic Technologist Chief Office Visit Report [facility] [address] [place] [address], [address] [place] [address] OFFICE VISIT Date of Service: 03/15/25 MR#: [id number] Acct: [id number] Name: HOLLY RAYO Rep #: [id number] : 1990 Provider: KATHY Christian Age/Sex: 35/F Location: [facility] [place] Status: Signed Intake Vital Signs 09/20/24 09:47 03/15/25 10:59 Height 5 ft 6.5 in 5 ft 6.5 in Weight: 213 lb 213 lb 3 oz BMI 33.8 33.9 BP 112/72 113/76 Blood Pressure Location Lt brachial Position Sitting Respiration 16 Pulse 104 H Pulse Source Monitor Temp 98.5 F Pulse Oximetry (%) 98 Oxygen Delivery Method room air 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 Is patient in pain?: No Allergies shellfish derived Allergy (Severe, Verified 03/15/25 11:00) Anaphylaxis latex Adverse Reaction (Verified 03/15/25 11:00) Unknown red dye Adverse Reaction (Verified 03/15/25 11:00) Other Medications ???Medication ???Instructions ???Recorded ???Confirmed ???Type cetirizine 10 mg capsule (Zyrtec) 10 mg PO DAILY 02/11/16 03/15/25 History duloxetine 30 mg capsule,delayed 30 mg PO QDAY 09/20/24 03/15/25 Hi story release ferrous sulfate 325 mg (65 mg 325 mg PO QDAY 09/20/24 03/15/25 H istory iron) tablet (FeroSul) fluticasone propionate 50 1 spray intranasal BID 09/20/24 History mcg/actuation nasal spray,suspension levothyroxine 100 mcg tablet 100 mcg PO DAILY #90 tabs 12/08/24 03/15/25 Rx rosuvastatin 10 mg tablet 10 mg PO QDAY #30 tabs 01/02/25 Rx duloxetine 60 mg capsule,delayed 60 mg PO QDAY #90 caps 01/15/25 Rx release cholecalciferol (vitamin D3) 25 25 mcg PO QDAY 03/15/25 03/15/25 H istory mcg (1,000 unit) capsule norethindrone acetate 1 mg-ethinyl 1 tab PO QDAY #63 tabs 03/15/25 03/15/25 Rx estradiol 20 mcg tablet (Loestrin) Is last menstrual period known: Yes Last Menstrual Period: 02/12/25 Post menopausal: No Patient : No : No Control Method: condoms [facility] Medical History Hyperlipidemia Anxiety and depression Family history of early CAD Preventative health care Anxiety Hypothyroid Surgical History S/P tonsillectomy S/P partial thyroidectomy Family History Mother Asthma Arthritis Father Diabetes Heart disease Hypertension Myocardial infarction Hyperlipidemia Grandfather Lupus Grandfather Kidney disease Social History (Updated 03/15/25 @ 11:08 by Hawa Lynch) adopted: No household members: none number of children: 0 current occupational status: employed current occupation: [employer] pets and animals: No sexually active: Yes Smoking Status: Never smoker alcohol intake: never substance use type: does not use caffeine: Yes (1-2) Type: coffee and tea eating out: rarely or never during the past year weight has: increased > 10 lbs what type of physical activity do you participate in: walking frequency: 1-2 times per week lexii/shinto: Rastafarian seatbelt use: always do you feel safe at home: Yes additional social history: Boyfriend- Jalil. Public Health Researcher History 0 Elective abortions Hx Para Spontaneous abortions Hx # Term Pregnancies Ectopic pregnancies Hx # Pregnancies Multiple births # of living children HPI Encounter for routine gynecological examination Details: HOLLY RAYO is a 35 year old who presents for annual exam. She is here to establish. Has not been seen by HEEL CEMENTER prior. She currently sexually active; 1 partner. Using condoms. Open to starting OCP. Denies any issues or concerns otherwise. Last PAP: never History of abnormal PAP: n/a Last mammogram: age 42 History of abnormal mammogram: n/a Colon cancer screening: age 47 Other preventative health care screenings: Dr. Chan; PCP Female Reproductive History Last Menstrual Period: 02/12/25 Cycle Length: 21-35 Bleeding Duration: 5 Questions: metrorrhagia: No, sexually active: Yes (condoms), dyspareunia: No and PCB: No ROS Const Constitutional: Denies chills, fatigue, fever(s), headache(s) or weight loss Eyes Eyes: Denies change in vision ENT ENT: Denies dizziness Cardio Card: Denies chest pain at rest or palpitations Resp Resp: Denies cough or dyspnea GI GI: Denies abdominal pain, constipation or nausea : Denies difficulty voiding, dysuria, hematuria, nipple discharge, pelvic pain, prolapse symptoms, urinary incontinence, vaginal discharge, vaginal dryness, vaginal odor or vaginal pruritus Skin Skin/Breast: Denies alopecia, rash, breast mass, breast pain, breast skin c (more content not included)... Normal [facility] Anion gap in Serum or Plasma Ordered By: Amy Chan on 10-17-2024 Anion gap [Moles/Vol] 13 mmol/L 5-15 [facility] BUN/creatinine ratioOrdered By: Amy Chan on 10-17-2024 Urea nitrogen/Creatinine [Mass ratio] 13.8 mg/mg 10-20 [facility] Bilirubin, totalOrdered By: Amy Chan on 10-17-2024 Bilirubin [Mass/Vol] 0.30 mg/dL 0.00-1.30 [facility] Calculated very low density lipoprotein (VLDL) cholesterol measurementOrdered By: Amy Chan on 10-17-2024 VLDL Cholesterol 19 mg/dL 5-40 [facility] Carbon dioxide, total [Moles /volume] in Central venous bloodOrdered By: Amy Chan on 10-17-2024 CO2 [Moles/Vol] 20.0 mmol/L Low 21.0-32.0 [facility] Chloride assayOrdered By: Betty Chan on 10-17-2024 Chloride [Moles/Vol] 106 mmol/L 98-108 [facility] Comprehensive Metabolic Prof ilon 10-17-2024 Albumin [Mass/Vol] 4.1 g/dL Normal 3.5-5.0 [facility] Comment on above: Performed By: #### L 500.4100, L500.4050 #### [facility] [address] [place], [address] Albumin/Globulin [Mass ratio] 1.4 {ratio} Normal 0.9-2.4 [facility] Comment on above: Performed By: #### L 500.4100, L500.4050 #### [facility] [address] [place], [address] ALK PHOS 58 U/L Normal 35-104 [facility] Comment on above: Performed By: #### L 500.4100, L500.4050 #### [facility] [address] [place], [address] ALT [Catalytic activity/Vol] 22 U/L Normal <=34 [facility] Comment on above: Performed By: #### L 500.4100, L500.4050 #### [facility] [address] [place], [address] AST [Catalytic activity/Vol] 27 U/L Normal <=31 [facility] Comment on above: Performed By: #### L 500.4100, L500.4050 #### [facility] [address] [place], [address] Bilirubin [Mass/Vol] 0.30 mg/dL Normal 0.00-1.30 [facility] Comment on above: Performed By: #### L 500.4100, L500.4050 #### [facility] [address] [place], [address] BUN/CRE 13.8 RATIO Normal 10-20 [facility] Comment on above: Performed By: #### L 500.4100, L500.4050 #### [facility] [address] [place], [address] Calcium [Mass/Vol] 8.9 mg/dL Normal 7.6-11.0 [facility] Comment on above: Performed By: #### L 500.4100, L500.4050 #### [facility] [address] [place], [address] Chloride [Moles/Vol] 106 mmol/L Normal 98-108 [facility] Comment on above: Performed By: #### L 500.4100, L500.4050 #### [facility] [address] [place], [address] CO2 [Moles/Vol] 20.0 mmol/L Low 21.0-32.0 [facility] Comment on above: Performed By: #### L 500.4100, L500.4050 #### [facility] [address] [place], [address] Creatinine [Mass/Vol] 0.69 mg/dL Low 0.70-1.20 [facility] Comment on above: Performed By: #### L 500.4100, L500.4050 #### [facility] [address] [place], [address] GAP 13 Normal 5-15 [facility] Comment on above: Performed By: #### L 500.4100, L500.4050 #### [facility] [address] [place], [address] GFR/1.73 sq M.predicted among non-blacks MDRD (S/P/Bld) [Vol rate/Area] 118 mL/min/{1.73_m2} Normal >60 [facility] Comment on above: Result Comment: mL/m in/1.73m2 CKD-EPI Creatinine Equation (2020) Performed By: #### L 500.4100, L500.4050 #### [facility] [address] [place], [address] Globulin (S) [Mass/Vol] 2.9 g/dL Normal 2.2-4.2 [facility] Comment on above: Performed By: #### L 500.4100, L500.4050 #### [facility] [address] [place], [address] Glucose [Mass/Vol] 90 mg/dL Normal 70-99 [facility] Comment on above: Performed By: #### L 500.4100, L500.4050 #### [facility] [address] [place], [address] Potassium [Moles/Vol] 4.1 mmol/L Normal 3.3-5.1 [facility] Comment on above: Performed By: #### L 500.4100, L500.4050 #### [facility] [address] [place], [address] Sodium [Moles/Vol] 138 mmol/L Normal 133-145 [facility] Comment on above: Performed By: #### L 500.4100, L500.4050 #### [facility] [address] [place], [address] T PROT 6.9 g/dL Normal 5.9-8.4 [facility] Comment on above: Performed By: #### L 500.4100, L500.4050 #### [facility] [address] [place], [address] Urea nitrogen [Mass/Vol] 9 mg/dL Normal 4-19 [facility] Comment on above: Performed By: #### L 500.4100, L500.4050 #### [facility] [address] [place], [address] GFR/1.73 sq M.predicted annie g non-blacks MDRD (S/P/Bld) [Vol rate/Area]Ordered By: Amy Chan on 10-17-2024 Estimated GFR (MDRD) Non-Af Amer 118 >60 [facility] Comment on above: mL/min/1.73m2 CKD-EP I Creatinine Equation (2020) LDL calc ser/plasOrdered By: Amy Chan on 10-17-2024 LDL Cholesterol, Calculated 81 mg/dL [facility] Comment on above: Jgheeebpfs=146-041 m g/dL & Higher Bhmm=350 mg/dL or greater Laboratory - Chemistry and C hemistry - challengeOrdered By: Amy Chan on 10-17-2024 AST [Catalytic activity/Vol] 27 U/L <32 [facility] Lipid Profileon 10-17-2024 CHOL:HDL 3.22 Normal [facility] Comment on above: Performed By: #### L 500.4100, L500.4050 #### [facility] [address] [place], [place], [id number] ([phone]) Cholesterol [Mass/Vol] 145 mg/dL Normal <=200 [facility] Comment on above: Result Comment: Chol esterol level, Desirable <200 mg/dL Borderline high cholesterol 200-239 mg/dL High cholesterol >=240 mg/dL Recommendations of the NCEP Adult Treatment Panel for the following risk-cutoff thresholds for the [place] population. Performed By: #### L 500.4100, L500.4050 #### [facility] [address] [place], [place], [id number] (489) Cholesterol in HDL [Mass/Vol] 45 mg/dL Normal [facility] Comment on above: Result Comment: Danika onal Cholesterol Education Program (NCEP) guidelines: <40 mg/dL: Low HDL-cholesterol (major risk factor for CHD) >= 60 mg/dL: High HDL-cholesterol (negative risk factor for CHD) HDL-cholesterol is affected by a number of factors, e.g. smoking, exercise, hormones, sex and age. Performed By: #### L 500.4100, L500.4050 #### [facility] [address] [place], [address] Cholesterol in LDL [Mass/Vol] 81 mg/dL Normal [facility] Comment on above: Result Comment: Bord tztpab=365-308 mg/dL Higher Pixr=719 mg/dL or greater Performed By: #### L 500.4100, L500.4050 #### [facility] [address] [place], [address] Cholesterol in VLDL [Mass/Vol] 19 mg/dL Normal 5-40 [facility] Comment on above: Performed By: #### L 500.4100, L500.4050 #### [facility] [address] [place], [address] Triglyceride [Mass/Vol] 95 mg/dL Normal [facility] Comment on above: Result Comment: The drugs N-Acetylcysteine and Metamizole may falsely depress this assay. Normal range: <150 mg/dL Borderline High: 150-199 mg/dL High: 200-499 mg/dL Very High: >500 mg/dL Performed By: #### L 500.4100, L500.4050 #### [facility] [address] [place], [address] Potassium (Unsp spec) [Mass/ Vol]Ordered By: Amy Chan on 10-17-2024 Potassium [Moles/Vol] 4.1 mmol/L 3.3-5.1 [facility] Screening total cholesterol/ high density lipoprotein (HDL) cholesterol ratioOrdered By: Amy Chan on 10-17-2024 Cholesterol.total/Norma sterol in HDL [Mass ratio] 3.22 {ratio} [facility] Serum creatinine measurement (mass/volume)Ordered By: Amy Chan on 10-17-2024 Creatinine [Mass/Vol] 0.69 mg/dL Low 0.70-1.20 [facility] Serum globulin measurementOr dered By: Amy Chan on 10-17-2024 Globulin (S) [Mass/Vol] 2.9 g/dL 2.2-4.2 [facility] Serum glucose measurement (m ass/volume)Ordered By: Amy Chan on 10-17-2024 Glucose [Mass/Vol] 90 mg/dL 70-99 [facility] Serum or plasma alanine back otransferase (ALT) measurementOrdered By: Amorcarole Fentonsissycorinne on 10-17-2024 ALT [Catalytic activity/Vol] 22 U/L <35 [facility] Serum or plasma albumin rodolfo urement (mass/volume)Ordered By: Amorcarole Fentonsissycorinne 10-17-2024 Albumin [Mass/Vol] 4.1 g/dL 3.5-5.0 [facility] Serum or plasma albumin/glob ulin mass ratioOrdered By: [facility] 10-17-2024 Albumin/Globulin [Mass ratio] 1.4 {ratio} 0.9-2.4 [facility] Serum or plasma alkaline latrell sphatase measurementOrdered By: Bettychinedujustincarole Chan 10-17-2024 ALP [Catalytic activity/Vol] 58 U/L 35-104 [facility] Serum or plasma calcium rodolfo urement (mass/volume)Ordered By: Amorcarole Fentonsissycorinne 10-17-2024 Calcium [Mass/Vol] 8.9 mg/dL 7.6-11.0 [facility] Serum or plasma cholesterol in HDL measurement (mass/volume)Ordered By: Amorcarole Fentonsissycorinne 10-17-2024 Cholesterol in HDL [Mass/Vol] 45 mg/dL >40 [facility] Comment on above: National Cholesterol Education Program (NCEP) guidelines:<40 mg/dL: Low HDL-cholesterol (major risk factor for CHD)>= 60 mg/dL: High HDL-cholesterol (negative risk factor for CHD)HDL-cholesterol is affected by a number of factors, e.g. smoking, exercise, hormones, sex and age. Serum or plasma cholesterol measurement (mass/volume)Ordered By: Amorcarole Chan on 10-17-2024 Cholesterol [Mass/Vol] 145 mg/dL <201 [facility] Comment on above: Cholesterol level, D esirable <200 mg/dLBorderline high cholesterol 200-239 mg/dLHigh cholesterol >=240 mg/dLRecommendations of the NCEP Adult Treatment Panel for the following risk-cutoff thresholds for the [place] population. Serum or plasma urea nitroge n measurement (mass/volume)Ordered By: Amy Chan on 10-17-2024 Urea nitrogen [Mass/Vol] 9 mg/dL 4-19 [facility] Sodium levelOrdered By: Isaías sushma Rocio on 10-17-2024 Sodium [Moles/Vol] 138 mmol/L 133-145 [facility] Total proteinOrdered By: Mono sweeney Eliceosissycorinne on 10-17-2024 Protein [Mass/Vol] 6.9 g/dL 5.9-8.4 [facility] Triglycerides measurementOrd ered By: Bettyelton Fentonsissycorinne on 10-17-2024 Triglyceride [Mass/Vol] 95 mg/dL <199 [facility] Comment on above: The drugs N-Acetylcy steine and Metamizole may falsely depress this assay. Normal range: <150 mg/dLBorderline High: 150-199 mg/dLHigh: 200-499 mg/dLVery High: >500 mg/dL Lipoprotein Aon 09-21-2024 Lipoprotein a [Moles/Vol] 203.4 nmol/L Abnormal <75.0 [facility] Comment on above: Result Comment: Note : Values greater than or equal to 75.0 nmol/L may indicate an independent risk factor for CHD, but must be evaluated with caution when applied to non- populations due to the influence of genetic factors on Lp(a) across ethnicities. Performed at: [facility] Lab[address] [id number] [employer]: Dalton Wolfe PhD, Phone: [phone] Performed By: #### L 100.0100, L500.4100, L500.4050, L3400.4600, L501.9520 ####[facility] [id number] [place], [address] Absolute neutrophil countOrd ered By: Amy Chan on 09-20-2024 Neutrophils (Bld) [#/Vol] 4.3 10*3/uL 2.0-7.7 [facility] Anion gap in Serum or Plasma Ordered By: Amy Chan on 09-20-2024 Anion gap [Moles/Vol] 13 mmol/L 5-15 [facility] BUN/creatinine ratioOrdered By: Amy Chan on 09-20-2024 Urea nitrogen/Creatinine [Mass ratio] 15.2 mg/mg 10-20 [facility] Basophil percentageOrdered B y: Amy Chan on 09-20-2024 Basophils/100 WBC (Bld) 0.8 % 0-1 [facility] Bilirubin, totalOrdered By: Amy Chan on 09-20-2024 Bilirubin [Mass/Vol] 0.38 mg/dL 0.00-1.30 [facility] CBC W/Diff, Automatedon 09-09-2024 Absolute Lymph 1.98 X10 3/uL Normal 0.83-4.51 [facility] Comment on above: Performed By: #### L 100.0100, L500.4100, L500.4050, L3400.4600, L501.9520 #### [facility] [address] [place], [address] Absolute Neut 4.3 X10 3/uL Normal 2.0-7.7 [facility] Comment on above: Performed By: #### L 100.0100, L500.4100, L500.4050, L3400.4600, L501.9520 #### [facility] [address] [place], [address] Basophils/100 WBC (Bld) 0.8 % Normal 0-1 [facility] Comment on above: Performed By: #### L 100.0100, L500.4100, L500.4050, L3400.4600, L501.9520 #### [facility] [address] [place], [address] Eosinophils/100 WBC (Bld) 4.7 % Normal 0-5 [facility] Comment on above: Performed By: #### L 100.0100, L500.4100, L500.4050, L3400.4600, L501.9520 #### [facility] [address] [place], [address] Erythrocyte distribution width (RBC) [Ratio] 11.9 % Normal 11.6-14.6 [facility] Comment on above: Performed By: #### L 100.0100, L500.4100, L500.4050, L3400.4600, L501.9520 #### [facility] [address] [place], [address] Hematocrit (Bld) [Volume fraction] 39.5 % Normal 37-47 [facility] Comment on above: Performed By: #### L 100.0100, L500.4100, L500.4050, L3400.4600, L501.9520 #### [facility] [address] [place], [address] Hemoglobin (Bld) [Mass/Vol] 13.4 g/dL Normal 12.0-15.0 [facility] Comment on above: Performed By: #### L 100.0100, L500.4100, L500.4050, L3400.4600, L501.9520 #### [facility] [address] [place], [address] IG% 0.400 Normal 0.0-0.9 [facility] Comment on above: Result Comment: IG% - Immature Granulocytes (promyelocytes, myelocytes and metamyelocytes) > 1% indicates that a LEFT SHIFT is Present. Performed By: #### L 100.0100, L500.4100, L500.4050, L3400.4600, L501.9520 #### [facility] [address] [place], [address] Lymphocytes/100 WBC (Bld) 27.5 % Normal 19-41 [facility] Comment on above: Performed By: #### L 100.0100, L500.4100, L500.4050, L3400.4600, L501.9520 #### [facility] [address] [place], [address] MCH (RBC) [Entitic mass] 29.7 pg Normal 27.0-32.0 [facility] Comment on above: Performed By: #### L 100.0100, L500.4100, L500.4050, L3400.4600, L501.9520 #### [facility] [address] [place], [address] MCHC (RBC) [Mass/Vol] 33.9 g/dL Normal 32-36 [facility] Comment on above: Performed By: #### L 100.0100, L500.4100, L500.4050, L3400.4600, L501.9520 #### [facility] [address] [place], [address] MCV (RBC) [Entitic vol] 87.6 fL Normal 81-99 [facility] Comment on above: Performed By: #### L 100.0100, L500.4100, L500.4050, L3400.4600, L501.9520 #### [facility] [address] [place], [address] Monocytes/100 WBC (Bld) 7.2 % Normal 0-10 [facility] Comment on above: Performed By: #### L 100.0100, L500.4100, L500.4050, L3400.4600, L501.9520 #### [facility] [address] [place], [address] Neutrophils/100 WBC (Bld) 59.4 % Normal 47-70 [facility] Comment on above: Performed By: #### L 100.0100, L500.4100, L500.4050, L3400.4600, L501.9520 #### [facility] [address] [place], [address] Nucleated RBC (Bld) [#/Vol] 0 10*3/uL Normal 0-5 [facility] Comment on above: Performed By: #### L 100.0100, L500.4100, L500.4050, L3400.4600, L501.9520 #### [facility] [address] [place], [address] Platelet mean volume (Bld) [Entitic vol] 10.4 fL Normal 6.2-12.0 [facility] Comment on above: Performed By: #### L 100.0100, L500.4100, L500.4050, L3400.4600, L501.9520 #### [facility] [address] [place], [address] Platelets (Bld) [#/Vol] 341 10*3/uL Normal 150-450 [facility] Comment on above: Performed By: #### L 100.0100, L500.4100, L500.4050, L3400.4600, L501.9520 #### [facility] [address] [place], [address] RBC (Bld) [#/Vol] 4.51 10*6/uL Normal 4.2-5.4 [facility] Comment on above: Performed By: #### L 100.0100, L500.4100, L500.4050, L3400.4600, L501.9520 #### [facility] [address] [place], [address] RDW SD 38.6 fl Normal 35.1-43.9 [facility] Comment on above: Performed By: #### L 100.0100, L500.4100, L500.4050, L3400.4600, L501.9520 #### [facility] [address] [place], [address] WBC (Bld) [#/Vol] 7.2 10*3/uL Normal 4.4-11.0 [facility] Comment on above: Performed By: #### L 100.0100, L500.4100, L500.4050, L3400.4600, L501.9520 #### [facility] [address] [place], [address] Calculated very low density lipoprotein (VLDL) cholesterol measurementOrdered By: Amy Chan on 09-20-2024 VLDL Cholesterol 27 mg/dL 5-40 [facility] Carbon dioxide, total [Moles /volume] in Central venous bloodOrdered By: Amy Chan on 09-20-2024 CO2 [Moles/Vol] 20.8 mmol/L Low 21.0-32.0 [facility] Chloride assayOrdered By: Betty chebranfordcarole Chan on 09-20-2024 Chloride [Moles/Vol] 105 mmol/L 98-108 [facility] Comprehensive Metabolic Prof ilon 09-20-2024 Albumin [Mass/Vol] 4.2 g/dL Normal 3.5-5.0 [facility] Comment on above: Performed By: #### L 100.0100, L500.4100, L500.4050, L3400.4600, L501.9520 #### [facility] [address] [place], [address] Albumin/Globulin [Mass ratio] 1.4 {ratio} Normal 0.9-2.4 [facility] Comment on above: Performed By: #### L 100.0100, L500.4100, L500.4050, L3400.4600, L501.9520 #### [facility] [address] [place], [address] ALK PHOS 67 U/L Normal 35-104 [facility] Comment on above: Performed By: #### L 100.0100, L500.4100, L500.4050, L3400.4600, L501.9520 #### [facility] [address] [place], [address] ALT [Catalytic activity/Vol] 23 U/L Normal <=34 [facility] Comment on above: Performed By: #### L 100.0100, L500.4100, L500.4050, L3400.4600, L501.9520 #### [facility] [address] [place], [address] AST [Catalytic activity/Vol] 29 U/L Normal <=31 [facility] Comment on above: Performed By: #### L 100.0100, L500.4100, L500.4050, L3400.4600, L501.9520 #### [facility] [address] [place], [address] Bilirubin [Mass/Vol] 0.38 mg/dL Normal 0.00-1.30 [facility] Comment on above: Performed By: #### L 100.0100, L500.4100, L500.4050, L3400.4600, L501.9520 #### [facility] [address] [place], [address] BUN/CRE 15.2 RATIO Normal 10-20 [facility] Comment on above: Performed By: #### L 100.0100, L500.4100, L500.4050, L3400.4600, L501.9520 #### [facility] [address] [place], [address] Calcium [Mass/Vol] 9.4 mg/dL Normal 7.6-11.0 [facility] Comment on above: Performed By: #### L 100.0100, L500.4100, L500.4050, L3400.4600, L501.9520 #### [facility] [address] [place], [address] Chloride [Moles/Vol] 105 mmol/L Normal 98-108 [facility] Comment on above: Performed By: #### L 100.0100, L500.4100, L500.4050, L3400.4600, L501.9520 #### [facility] [address] [place], [address] CO2 [Moles/Vol] 20.8 mmol/L Low 21.0-32.0 [facility] Comment on above: Performed By: #### L 100.0100, L500.4100, L500.4050, L3400.4600, L501.9520 #### [facility] [address] [place], [address] Creatinine [Mass/Vol] 0.78 mg/dL Normal 0.70-1.20 [facility] Comment on above: Performed By: #### L 100.0100, L500.4100, L500.4050, L3400.4600, L501.9520 #### [facility] [address] [place], [address] GAP 13 Normal 5-15 [facility] Comment on above: Performed By: #### L 100.0100, L500.4100, L500.4050, L3400.4600, L501.9520 #### [facility] [address] [place], [address] GFR/1.73 sq M.predicted among non-blacks MDRD (S/P/Bld) [Vol rate/Area] 104 mL/min/{1.73_m2} Normal >60 [facility] Comment on above: Result Comment: mL/m in/1.73m2 CKD-EPI Creatinine Equation (2020) Performed By: #### L 100.0100, L500.4100, L500.4050, L3400.4600, L501.9520 #### [facility] [address] [place], [address] Globulin (S) [Mass/Vol] 3.1 g/dL Normal 2.2-4.2 [facility] Comment on above: Performed By: #### L 100.0100, L500.4100, L500.4050, L3400.4600, L501.9520 #### [facility] [address] [place], [address] Glucose [Mass/Vol] 93 mg/dL Normal 70-99 [facility] Comment on above: Performed By: #### L 100.0100, L500.4100, L500.4050, L3400.4600, L501.9520 #### [facility] [address] [place], [address] Potassium [Moles/Vol] 4.1 mmol/L Normal 3.3-5.1 [facility] Comment on above: Performed By: #### L 100.0100, L500.4100, L500.4050, L3400.4600, L501.9520 #### [facility] [address] [place], [address] Sodium [Moles/Vol] 139 mmol/L Normal 133-145 [facility] Comment on above: Performed By: #### L 100.0100, L500.4100, L500.4050, L3400.4600, L501.9520 #### [facility] [address] [place], [address] T PROT 7.3 g/dL Normal 5.9-8.4 [facility] Comment on above: Performed By: #### L 100.0100, L500.4100, L500.4050, L3400.4600, L501.9520 #### [facility] [address] [place], [address] Urea nitrogen [Mass/Vol] 12 mg/dL Normal 4-19 [facility] Comment on above: Performed By: #### L 100.0100, L500.4100, L500.4050, L3400.4600, L501.9520 #### [facility] [address], [address] Eosinophil percentageOrdered By: Amy Chan on 09-20-2024 Eosinophils/100 WBC (Bld) 4.7 % 0-5 [facility] Erythrocyte distribution wid th ratioOrdered By: [facility] Fentoncorinne on 09-20-2024 Erythrocyte distribution width (RBC) [Ratio] 11.9 % 11.6-14.6 [facility] Erythrocyte distribution wid th standard deviationOrdered By: [facility] Fentoncorinne on 09-20-2024 Erythrocyte distribution width (RBC) [Entitic vol] 38.6 fL 35.1-43.9 [facility] GFR/1.73 sq M.predicted annie g non-blacks MDRD (S/P/Bld) [Vol rate/Area]Ordered By: [facility] Chan on 09-20-2024 Estimated GFR (MDRD) Non-Af Amer 104 >60 [facility] Comment on above: mL/min/1.73m2 CKD-EP I Creatinine Equation (2020) Hematocrit Auto (Bld) [Volum e fraction]Ordered By: [facility] Fentoncorinne on 09-20-2024 Hematocrit (Bld) [Volume fraction] 39.5 % 37-47 [facility] Hemoglobin measurementOrdere d By: chinedubranfordcarole Chan on 09-20-2024 Hemoglobin (Bld) [Mass/Vol] 13.4 g/dL 12.0-15.0 [facility] Immature granulocytes/100 WB C Auto (Bld)Ordered By: Amy Chan on 09-20-2024 Immature granulocytes/100 WBC (Bld) 0.400 % 0.0-0.9 [facility] Comment on above: IG% - Immature Granu locytes (promyelocytes, myelocytes and metamyelocytes) > 1% indicates that a LEFT SHIFT is Present. Internal Medicine Office Vis heather 09-20-2024 Internal Medicine Office Visit [facility] [address] [place], [place] [id number] OFFICE VISIT Date of Service: 09/20/24 MR#: [id number] Acct: [id number] Name: HOLLY RAYO Rep #: [id number] : 1990 Provider: Dr. Amy borges MD Age/Sex: 34/F [place] [facility] [place]: Signed Intake Vital Signs 09/20/24 09:47 Height 5 ft 6.5 in Weight: 213 lb BMI 33.8 BP 112/72 Blood Pressure Location Lt brachial Position Sitting Respiration 16 Pulse 104 H Pulse Source Monitor Temp 98.5 F Temp Source Temporal Pulse Oximetry (%) 98 Oxygen Delivery Method room air Intake Visit Reasons: Booked from other vendor Chief Complaint: Establish care Instrumentation Tech Required: No Is patient in pain?: No Allergies shellfish derived Allergy (Severe, Verified 09/20/24 09:38) Anaphylaxis latex Adverse Reaction (Verified 09/20/24 09:34) Unknown red dye Adverse Reaction (Verified 09/20/24 09:34) Other Medications ???Medication ???Instructions ???Recorded ???Confirmed ???Type cetirizine 10 mg capsule (Zyrtec) 10 mg PO DAILY 02/11/16 09/20/24 History ascorbate calcium (vitamin C) 500 500 mg PO QDAY 09/20/24 09/20/24 History mg tablet duloxetine 30 mg capsule,delayed 30 mg PO QDAY 09/20/24 09/20/24 Hi story release duloxetine 60 mg capsule,delayed 60 mg PO QDAY 09/20/24 09/20/24 Hi story release ferrous sulfate 325 mg (65 mg 325 mg PO QDAY 09/20/24 09/20/24 H istory iron) tablet (FeroSul) fluticasone propionate 50 1 spray intranasal BID 09/20/24 History mcg/actuation nasal spray,suspension levothyroxine 100 mcg tablet mcg PO DAILY 09/20/24 09/20/24 His tory nblssrze-joj-xkvu 18 mg-FA 400 tab PO 09/20/24 09/20/24 History mcg-calcium 500 mg-vit K 50 mcg tablet (Women's Multivitamin) Nurse's Note: Pt states that she is probably due for lab work. Is not fasting today. Does not follow w/ endocrinology. [facility] Medical History (Updated 09/20/24 @ 10:[address] Amy Chan MD) Anxiety and depression Family history of early CAD Preventative health care Anxiety Hypothyroid Surgical History (Updated 09/20/24 @ 09:37 by Aissatou Bolanos MA) S/P tonsillectomy S/P partial thyroidectomy Family History (Updated 09/20/24 @ 09:44 by Aissatou Bolanos MA) Mother Asthma Arthritis Father Diabetes Heart disease Hypertension Myocardial infarction Hyperlipidemia Grandfather Lupus Grandfather Kidney disease Social History (Updated 09/20/24 @ 09:45 by Aissatou Bolanos MA) adopted: No household members: none number of children: 0 current occupational status: employed current occupation: [employer] pets and animals: No sexually active: Yes Smoking Status: Never smoker alcohol intake: never substance use type: does not use caffeine: Yes (1-2) Type: coffee what type of physical activity do you participate in: walking frequency: 3-4 times per week do you feel safe at home: Yes HPI HPI Chief Complaint: Establish care Details: HOLLY RAYO, is a 34 F who presents to the office today to establish care. Acute concerns at this time. History of partial thyroidectomy currently on levothyroxine. She states that she takes her levothyroxine consistently in the morning and waits 30 minutes prior to taking anything else. Also chronic history of depression and anxiety on duloxetine, finds it helpful. Family history of early CAD, father is first heart attack was in his 40s. Father also with a history of diabetes and hypertension. Labs done in 2021 show elevated LDL. She states that she exercises at least 3 days weekly, walks. No tobacco or alcohol use. Has never had a Pap smear. ROS Const Constitutional: No body ache, chills, excessive sweating, fatigue, fever(s), frequent falls, headache(s), snoring, weakness, sleep problems or change in appetite Eyes Eyes: No blurry vision, change in vision, bulging eyes, floaters, visual disturbances, eye pain or Light sensitivity ENT ENT: No abnormal hearing, ear or mastoid pain, tinnitus, balance problems, nosebleed/epistaxis, nasal congestion, headache(s), neck pain or sore throat Resp Respiratory: No cough, excessive phlegm production, pain on inspiration, shortness of breath, snoring or wheezing Cardio Cardiology: No chest pain at rest, chest pain with exertion, excessive sweating, shortness of breath, dyspnea on exertion, lightheadedness, orthopnea or palpitations Gastro GI: No abdominal pain, change in bowel habits, constipation, cramping, diarrhea, nausea/dyspepsia or vomiting Genitourinary-Female: No burning urination, painful urination, urinary incontinence, urinary frequency, abnormal vaginal bleeding or pelvic pain Musc Musculoskeletal: No abnormal gait, joint pain, back pain, limited r (more content not included)... Normal [facility] LDL calc ser/plasOrdered By: Amy Chan on 09-20-2024 LDL Cholesterol, Calculated 214 mg/dL [facility] Comment on above: Wvyewzdgmp=256-731 m g/dL & Higher Ypls=429 mg/dL or greater Laboratory - Chemistry and C hemistry - challengeOrdered By: Amy Chan on 09-20-2024 AST [Catalytic activity/Vol] 29 U/L <32 [facility] Lipid Profileon 09-20-2024 CHOL:HDL 7.05 Normal [facility] Comment on above: Performed By: #### L 100.0100, L500.4100, L500.4050, L3400.4600, L501.9520 ####[facility] [address] [place], [address] Cholesterol [Mass/Vol] 280 mg/dL High <=200 [facility] Comment on above: Result Comment: Chol esterol level, Desirable <200 mg/dL Borderline high cholesterol 200-239 mg/dL High cholesterol >=240 mg/dL Recommendations of the NCEP Adult Treatment Panel for the following risk-cutoff thresholds for the [place] population. Performed By: #### L 100.0100, L500.4100, L500.4050, L3400.4600, L501.9520 ####[facility] [id number] [place], [address] Cholesterol in HDL [Mass/Vol] 40 mg/dL Normal [facility] Comment on above: Result Comment: Danika onal Cholesterol Education Program (NCEP) guidelines: <40 mg/dL: Low HDL-cholesterol (major risk factor for CHD) >= 60 mg/dL: High HDL-cholesterol (negative risk factor for CHD) HDL-cholesterol is affected by a number of factors, e.g. smoking, exercise, hormones, sex and age. Performed By: #### L 100.0100, L500.4100, L500.4050, L3400.4600, L501.9520 ####[facility] [address] [place], [address] Cholesterol in LDL [Mass/Vol] 214 mg/dL Normal [facility] Comment on above: Result Comment: Bord qtrxxz=475-012 mg/dL Higher Uwsn=225 mg/dL or greater Performed By: #### L 100.0100, L500.4100, L500.4050, L3400.4600, L501.9520 ####[facility] [address] [place], [address] Cholesterol in VLDL [Mass/Vol] 27 mg/dL Normal 5-40 [facility] Comment on above: Performed By: #### L 100.0100, L500.4100, L500.4050, L3400.4600, L501.9520 ####[facility] [address] [place], [address] Triglyceride [Mass/Vol] 133 mg/dL Normal [facility] Comment on above: Result Comment: The drugs N-Acetylcysteine and Metamizole may falsely depress this assay. Normal range: <150 mg/dL Borderline High: 150-199 mg/dL High: 200-499 mg/dL Very High: >500 mg/dL Performed By: #### L 100.0100, L500.4100, L500.4050, L3400.4600, L501.9520 ####[facility] [address] [place], [address] Lipoprotein a [Mass/Vol]Orde red By: Amy Chan on 09-20-2024 Lipoprotein a [Moles/Vol] 203.4 nmol/L High <75.0 [facility] Comment on above: Note: Values greater than or equal to 75.0 nmol/L may indicate an independent risk factor for CHD, but must be evaluated with caution when applied to non- populations due to the influence of genetic factors on Lp(a) across ethnicities.Performed at: [facility] [id number] Director: Dalton Wolfe PhD, Phone: [phone] Lymphocytes Auto (Unsp spec) [#/Vol]Ordered By: Amy Chan on 09-20-2024 Lymphocytes (Bld) [#/Vol] 1.98 10*3/uL 0.83-4.51 [facility] Lymphocytes/100 WBC Auto (Un sp spec)Ordered By: Amy Chan on 09-20-2024 Lymphocytes/100 WBC (Bld) 27.5 % 19-41 [facility] MCV (mean corpuscular volume ) determinationOrdered By: Amy Chan on 09-20-2024 MCV (RBC) [Entitic vol] 87.6 fL 81-99 [facility] Mean corpuscular hemoglobin (MCH) determinationOrdered By: chinedubranfordcarole Chan on 09-20-2024 MCH (RBC) [Entitic mass] 29.7 pg 27.0-32.0 [facility] Mean corpuscular hemoglobin concentration (MCHC) determinationOrdered By: chinedubranfordcarole Chan on 09-20-2024 MCHC (RBC) [Mass/Vol] 33.9 g/dL 32-36 [facility] Mean platelet volume determi nationOrdered By: chinedubranfordcarole Chan on 09-20-2024 Platelet mean volume (Bld) [Entitic vol] 10.4 fL 6.2-12.0 [facility] Monocyte percentageOrdered B y: Amy Chan on 09-20-2024 Monocytes/100 WBC (Bld) 7.2 % 0-10 [facility] Neutrophil percentageOrdered By: chinedubranfordcarole Chan on 09-20-2024 Neutrophils/100 WBC (Bld) 59.4 % 47-70 [facility] Nucleated red blood cell per centageOrdered By: Amy Chan on 09-20-2024 Nucleated RBC/100 WBC (Bld) [Ratio] 0 % 0-5 [facility] Platelet countOrdered By: Betty Chan on 09-20-2024 Platelets (Bld) [#/Vol] 341 10*3/uL 150-450 [facility] Potassium (Unsp spec) [Mass/ Vol]Ordered By: Amy Chan on 09-20-2024 Potassium [Moles/Vol] 4.1 mmol/L 3.3-5.1 [facility] RBC Auto (Bld) [#/Vol]Ordere d By: Amy Chan on 09-20-2024 RBC (Bld) [#/Vol] 4.51 10*6/uL 4.2-5.4 [facility] Screening total cholesterol/ high density lipoprotein (HDL) cholesterol ratioOrdered By: Amy Chan on 09-20-2024 Cholesterol.total/Norma sterol in HDL [Mass ratio] 7.05 {ratio} [facility] Serum creatinine measurement (mass/volume)Ordered By: Amy Chan on 09-20-2024 Creatinine [Mass/Vol] 0.78 mg/dL 0.70-1.20 [facility] Serum globulin measurementOr dered By: Amy Chan on 09-20-2024 Globulin (S) [Mass/Vol] 3.1 g/dL 2.2-4.2 [facility] Serum glucose measurement (m ass/volume)Ordered By: Amy Chan on 09-20-2024 Glucose [Mass/Vol] 93 mg/dL 70-99 [facility] Serum or plasma alanine back otransferase (ALT) measurementOrdered By: Amy Chan on 09-20-2024 ALT [Catalytic activity/Vol] 23 U/L <35 [facility] Serum or plasma albumin rodolfo urement (mass/volume)Ordered By: Amy Chan on 09-20-2024 Albumin [Mass/Vol] 4.2 g/dL 3.5-5.0 [facility] Serum or plasma albumin/glob ulin mass ratioOrdered By: Amy Chan on 09-20-2024 Albumin/Globulin [Mass ratio] 1.4 {ratio} 0.9-2.4 [facility] Serum or plasma alkaline latrell sphatase measurementOrdered By: Amy Chan 09-20-2024 ALP [Catalytic activity/Vol] 67 U/L 35-104 [facility] Serum or plasma calcium rodolfo urement (mass/volume)Ordered By: Amy Chan 09-20-2024 Calcium [Mass/Vol] 9.4 mg/dL 7.6-11.0 [facility] Serum or plasma cholesterol in HDL measurement (mass/volume)Ordered By: Amy Chan 09-20-2024 Cholesterol in HDL [Mass/Vol] 40 mg/dL >40 [facility] Comment on above: National Cholesterol Education Program (NCEP) guidelines:<40 mg/dL: Low HDL-cholesterol (major risk factor for CHD)>= 60 mg/dL: High HDL-cholesterol (negative risk factor for CHD)HDL-cholesterol is affected by a number of factors, e.g. smoking, exercise, hormones, sex and age. Serum or plasma cholesterol measurement (mass/volume)Ordered By: Amy Chan 09-20-2024 Cholesterol [Mass/Vol] 280 mg/dL High <201 [facility] Comment on above: Cholesterol level, D esirable <200 mg/dLBorderline high cholesterol 200-239 mg/dLHigh cholesterol >=240 mg/dLRecommendations of the NCEP Adult Treatment Panel for the following risk-cutoff thresholds for the [place] population. Serum or plasma urea nitroge n measurement (mass/volume)Ordered By: Amy Chan 09-20-2024 Urea nitrogen [Mass/Vol] 12 mg/dL 4-19 [facility] Sodium levelOrdered By: Isaías Chan 09-20-2024 Sodium [Moles/Vol] 139 mmol/L 133-145 [facility] TSH DL <= 0.005 mIU/L QnOrde red By: Amy Chan 09-20-2024 Thyroid Stimulating Hormone (TSH) 1.720 uIU/mL 0.300-4.200 [facility] Thyroid Stim Hormone (TSH)on 09-20-2024 TSH 1.720 uIU/mL Normal 0.300-4.200 [facility] Comment on above: Performed By: #### L 100.0100, L500.4100, L500.4050, L3400.4600, L501.9520 ####[facility] [address] [place], [address] Total proteinOrdered By: Mono Chan on 09-20-2024 Protein [Mass/Vol] 7.3 g/dL 5.9-8.4 [facility] Triglycerides measurementOrd ered By: Amy Chan on 09-20-2024 Triglyceride [Mass/Vol] 133 mg/dL <199 [facility] Comment on above: The drugs N-Acetylcy steine and Metamizole may falsely depress this assay. Normal range: <150 mg/dLBorderline High: 150-199 mg/dLHigh: 200-499 mg/dLVery High: >500 mg/dL White blood cell (WBC) count Ordered By: Amy Chan on 09-20-2024 WBC (Bld) [#/Vol] 7.2 10*3/uL 4.4-11.0 [facility] Serum or plasma thyroid stim ulating hormone (TSH) measurement (units/volume)Ordered By: Meghan May on 10-22-2023 TSH Qn 0.91 uIU/mL 0.358-3.74 [facility] Serum or plasma thyroxine (T 4) measurement (mass/volume)Ordered By: Meghan May on 10-22-2023 T4 [Mass/Vol] 10.9 ug/dL 4.8-13.9 [facility] Laboratory - Chemistry and C hemistry - challengeOrdered By: Dr. May on 10-20-2022 T4 [Mass/Vol] 8.8 ug/dL 4.8-13.9 [facility] No Panel InformationOrdered By: Dr. May on 10-20-2022 Thyroid Stimulating Hormone (TSH) 3.58 uIU/mL 0.358-3.74 [facility] Basophil percentageon 2021 Cholesterol [Mass/Vol] 222 mg/dL <200 [facility] Work Phone: Comment on above: <200 mg/dL Desirable 200-240 mg/dL Borderline >240 mg/dL High Risk Triglyceride [Mass/Vol] 92 mg/dL [facility] Work Phone: Comment on above: The drugs N-Acetylcy steine and Metamizole may falsely depress this assay.Serum Triglycerides Reference Interval Normal <150 mg/dL Borderline high 150 - 199 mg/dL High 200 - 499 mg/dL Very High > or = 500 mg/dL Laboratory - Chemistry and C hemistry - challengeon 10-20-2021 T4 [Mass/Vol] 10.7 ug/dL 4.8-13.9 [facility] Work Phone: No Panel Informationon 10-20 Thyroid Stimulating Hormone (TSH) 2.29 uIU/mL 0.358-3.74 [facility] Work Phone: Serum or plasma cholesterol in HDL measurement (mass/volume)on 10-20-2021 Cholesterol in HDL [Mass/Vol] 49 mg/dL [facility] Work Phone: Comment on above: The drugs N-Acetylcy steine and Metamizole may falsely depress this assay. Reference Range HDL <40 mg/dL Low HDL Cholesterol HDL >or= 60 mg/dL High HDL Cholesterol Serum or plasma cholesterol in VLDL measurement (mass/volume)on 10-20-2021 Cholesterol in VLDL [Mass/Vol] 18 mg/dL 5-40 [facility] Work Phone: Serum or plasma low density lipoprotein (LDL) cholesterol measurement (mass/volume)on 10-20-2021 Cholesterol in LDL [Mass/Vol] 155 mg/dL 0-130 [facility] Work Phone: Vital Signs Date Time Vital Sign Value Performing Clinician Faci lity 03-26-2025 09:08-0400 Body height 168.[address] Amy Chan MD Work Phone: [facility] 03-26-2025 09:08-0400 Body mass index (BMI) [Ratio] 33.8 kg/m2 Dr. Amy Chan MD Work Phone: [facility] 03-26-2025 09:08-0400 Body temperature 96.8 [degF] Dr. Amy Chan MD Work Phone: [facility] 03-26-2025 09:08-0400 Body weight 96.[address] Amy Chan MD Work Phone: [facility] 03-26-2025 09:08-0400 Diastolic blood pressure 82 mm[Hg] Dr. Amy Chan MD Work Phone: [facility] 03-26-2025 09:08-0400 Heart rate 94 /min Dr. Amy Chan MD Work Phone: [facility] 03-26-2025 09:08-0400 Respiratory rate 18 /min Dr. Amy Chan MD Work Phone: [facility] 03-26-2025 09:08-0400 SaO2% (BldA) [Mass fraction] 100 % Dr. Amy Chan MD Work Phone: [facility] 03-26-2025 09:08-0400 Systolic blood pressure 133 mm[Hg] Dr. Amy Chan MD Work Phone: [facility] 03-15-2025 10:59-0400 Body height 168.[address] Amy Chan MD Work Phone: [facility] 03-15-2025 10:59-0400 Body mass index (BMI) [Ratio] 33.9 kg/m2 Dr. Amy Chan MD Work Phone: [facility] 03-15-2025 10:59-0400 Body weight 96.[address] Amy Chan MD Work Phone: [facility] 03-15-2025 10:59-0400 Diastolic blood pressure 76 mm[Hg] Dr. Amy Chan MD Work Phone: [facility] 03-15-2025 10:59-0400 Systolic blood pressure 113 mm[Hg] Dr. Amy Chan MD Work Phone: [facility] 09-20-2024 09:47-0400 Body height 168.[address] Meghan May MD Work Phone: [facility] 09-20-2024 09:47-0400 Body mass index (BMI) [Ratio] 33.8 kg/m2 Dr. Meghan May MD Work Phone: [facility] 09-20-2024 09:47-0400 Body temperature 98.5 [degF] Dr. Meghan May MD Work Phone: [facility] 09-20-2024 09:47-0400 Body weight 96.[address] Meghan May MD Work Phone: [facility] 09-20-2024 09:47-0400 Diastolic blood pressure 72 mm[Hg] Dr. Meghan May MD Work Phone: [facility] 09-20-2024 09:47-0400 Heart rate 104 /min Dr. Meghan May MD Work Phone: [facility] 09-20-2024 09:47-0400 Respiratory rate 16 /min Dr. Meghan May MD Work Phone: [facility] 09-20-2024 09:47-0400 SaO2% (BldA) [Mass fraction] 98 % Dr. Meghan May MD Work Phone: [facility] 09-20-2024 09:47-0400 Systolic blood pressure 112 mm[Hg] Dr. Meghan May MD Work Phone: [facility] Encounters Encounter Date Encounter Type Care Provider Facility Start: 04-06-2025 End: 04-06-2025 ambulatory AMY CHAN Facility:[facility] Start: 03-26-2025 End: 03-26-[address] Amy Chan MD -[facility] Work Phone: Start: 03-26-2025 End: 03-26-[address] Amy Chan MD Work Phone: -[facility] Start: 03-26-2025 End: 03-26-2025 [facility]ulatory [facility] Facility:[facility] Start: 03-15-2025 End: 03-15-[address] Amy Chan MD Work Phone: -Laboratory Specimen Start: 03-15-2025 End: 03-15-2025 Patient encounter procedure Shereen CHAVEZ -Laboratory Specimen Work Phone: Start: 03-15-2025 End: 03-15-2025 Patient encounter procedure Shereen CHAVEZ -[facility] Work Phone: Start: 03-15-2025 End: 03-15-2025 Patient encounter status Shereen Bledsoe NP-[facility] Start: 03-15-2025 End: 03-15-[address] Amy Chan MD Work Phone: -[facility] Start: 03-15-2025 End: 03-15-2025 ambulatory Shereen Bledsoe Facility:[facility] Start: 10-17-2024 End: 10-17-[address] Meghan May MD Work Phone: [facility] Work Phone: Start: 10-17-2024 End: 10-17-[address] Amy Chan MD -Laboratory, [facility] Start: 10-17-2024 End: 10-17-2024 ambulatory [facility] Facility:[facility] Start: 09-29-2024 Encounter for genera l adult medical examination without abnormal findings Amy Chan [facility] Start: 09-27-2024 End: 09-27-2024 Orders Only Brian Szymanski MD Work Phone: [facility] Comment on above: Mixed hyperlipidemia (Primary Dx) Start: 09-20-2024 End: 09-20-[address] Amy Chan MD -[facility] Work Phone: Start: 09-20-2024 End: 09-20-[address] Amy Chan MD [facility] Start: 09-20-2024 End: 09-20-[address] Meghan May MD Work Phone: [facility] Work Phone: Start: 09-20-2024 End: 09-20-2024 ambulatory [facility] Facility:[facility] Start: 10-22-2023 End: 10-22-2023 ambulatory [facility] Work Phone: Start: 10-22-2023 End: 10-22-2023 Patient encounter procedure [facility] Start: 06-14-2023 Telephone encounter Mike borges APRN.CNP Work Phone: [facility] Comment on above: Results Start: 10-20-2022 End: 10-20-2022 ambulatory [facility] Work Phone: Start: 10-20-2022 End: 10-20-2022 Patient encounter procedure [facility] Start: 10-20-2021 End: 10-20-2021 Patient encounter procedure [facility] Procedures Date Procedure Procedure Detail Performing Clinician Start: 03-15-2025 Liquid based cervica l cytology screening Dr. Amy Chan MD Work Phone: Comment on above: NEGATIVE FOR INTRAEP ITHELIAL LESION OR MALIGNANCY. This liquid based Th inPrep(R) pap test was screened withthe use of an image guided system. Plan of Treatment Date Care Activity Detail Author Start: 04-06-2025 End: 04-06-2025 Patient encounter procedure Cardiology Comment on above: kaylah ekg New- hyperlipdemia Start: 03-26-2025 Comprehensive metabo lic 2000 panel - Serum or Plasma [facility] Start: 03-26-2025 Lipid 1996 panel - S ana or Plasma [facility] Start: 09-20-2024 Patient referral [facility] Work Phone: Start: 03-12-2024 Covid-19 Vaccine ( season) Covid-19 Vaccine () [facility] Start: 03-12-2024 Influenza vaccination Influenza Vacc ine (#1) [facility] Start: 07-12-2022 Depression Assessment Depression Ass essment [facility] Start: 2022 HPV Testing HPV Testing [facility] Start: 2013 Pap Testing Pap Testing [facility] Start: 2013 Screening for malign ant neoplasm of cervix Cervical Cancer Screening [facility] Start: 2010 Anxiety Screening Anxiety Screening [facility] Start: 2010 Depression Screening Depression Scre ening [facility] Start: 2010 Hepatitis C Screening Hepatitis C [facility] Start: 2010 Hepatitis C screening Hepatitis C [facility] Start: 2010 HIV Screening HIV Screening [facility] Start: 2010 HIV screening HIV Screening [facility] Start: 2003 Urine microalbumin profile DTa P,Tdap,Td Vaccine (6 - Tdap) [facility] Alanine aminotransfe rase [Enzymatic activity/volume] in Serum or Plasma [facility] Albumin [Mass/volume ] in Serum or Plasma [facility] Alkaline phosphatase [Enzymatic activity/volume] in Serum or Plasma [facility] Anion gap in Serum o r Plasma [facility] Bilirubin, total measurement [facility] BUN/Creatinine ratio [facility] Calcium [Mass/volume ] in Serum or Plasma [facility] Carbon dioxide, tota l [Moles/volume] in Central venous blood [facility] Cholesterol [Mass/vo lume] in Serum or Plasma [facility] Cholesterol in HDL [Mass/volume] in Serum or Plasma [facility] Creatinine [Mass/vol ume] in Serum or Plasma [facility] End: 09-27-2025 ECG COMPLETE ECG COMPLETE ECG Routine Mixed hyperlipidemia 1 Occurrences starting 09/27/2024 until 09/27/2025 [facility] Work Phone: Comment on above: 1 Occurrences starti ng 09/27/2024 until 09/27/2025 Glucose [Mass/volume ] in Serum or Plasma [facility] Liquid based cervica l cytology screening [facility] Low density lipoprot ein cholesterol measurement [facility] Measurement of renal function [facility] Patient referral [facility] Work Phone: Potassium measurement [facility] Serum chloride measurement [facility] Sodium measurement [facility] Total cholesterol:HD L ratio measurement [facility] Total protein measurement [facility] Triglycerides measurement [facility] Urea nitrogen [Mass/volume] in Serum or Plasma [facility] VLDL cholesterol measurement [facility] [place] [place] Immunizations Immunization Date Immunization Notes Care Provider Fa [facility] 03-16-2025 Pfizer Covid-19 (Comirnaty) Dr. Amy Chan MD Work Phone: [facility] 04-24-2024 Covid (Spikevax) Dr. Amor Chna MD Work Phone: [facility] 04-19-2023 Pfizer Covid-19 (Comirnaty) Dr. Amy Chan MD Work Phone: [facility] 04-19-2023 influenza virus vaccine, unspecified formulation Brian Szymanski MD Work Phone: [facility] 04-20-2022 Covid Pfizer Bivalen t Booster Dr. Amy Chan MD Work Phone: [facility] 05-26-2021 Covid (Moderna) Dr. Samir Chan MD Work Phone: [facility] 10-25-2020 Covid (Moderna) Dr. Samir Chan MD Work Phone: [facility] 09-26-2020 Covid (Moderna) Dr. Samir Chan MD Work Phone: [facility] Payers Date Payer Category Payer Self-pay [id number] 2022 Unknown [id number] 2021 Private Health Insurance [id number] 2016 Unknown [id number] Private Health Insurance [id number] Private Health Insurance [id number] Unknown [id number] [id number] Unknown [id number] [id number] [id number] Unknown [id number] [id number] [id number] Unknown [id number] [id number] [id number] Unknown [id number] 2.16.8 [id number] Unknown [id number] 2.16.8 [id number] Unknown [id number] 2.16.8 [id number] Social History Date Type Detail Facility Start: 02-11-2016 Tobacco smoking stat us MDIS Unknown if ever smoked [facility] Start: 1990 Sex Assigned At Female [facility] Start: 12-23-2015 End: 03-15-2025 Tobacco smoking status NHIS Never smoked tobacco [facility] Start: 07-23-2016 Alcohol intake Current non-dr quantitative analyst marketing of alcohol (finding) [facility] Start: 1990 Sex Assigned At Not on file [facility] Gender identity Not on file [facility] Start: 09-29-2024 End: 10-20-2024 Sex Female (finding) [facility] Sexual Orientation Heterosexual (finding) [facility] Progress note 04-06-2025 Note Date & Type Note Facility 04-06-2025 Note HNO ID: [id number] Author: BRIAN SZYMANSKI MD Service: ? Author Type: Physician Type: Progress Notes Filed: 04/06/2025 10:11 Note Text: [facility] [employer] [facility] Reynoso Department of Cardiovascular Medicine SECTION OF PREVENTIVE CARDIOLOGY Date: 04/06/2025 Patient: Holly Rayo : 1990 CHIEF COMPLAINT: Consultation HISTORY OF PRESENT CARDIOVASCULAR ILLNESS: I had the pleasure of seeing Holly Rayo today in the [facility] for a cardiac consultation at the request of Dr. Chan. A copy of this consultation note will be provided to the requesting physician by way of shared Medical record or letter to requesting physician via US mail. The patient is a 35-year-old female with a history of hypercholesterolemia and hypothyroidism, presenting for evaluation of elevated LDL cholesterol levels. The patient was referred by her primary care physician for evaluation of hypercholesterolemia. She reports that her LDL cholesterol was elevated in 2021 and also this September, prompting the initiation of rosuvastatin 10 mg in September. Recent lab results from 03/26/2024 show an LDL level of 87 mg/dL, a significant improvement from 214 mg/dL in September. An Lp(a) level was also elevated at 203 nmol/L (reference range <75 nmol/L). 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 She is currently taking levothyroxine 100 mcg daily. Her TSH level in September was 1.7 mIU/L. She reports heavy menstrual bleeding but denies any other bleeding issues or stomach ulcers. She is not currently planning to conceive and has no children. She engages in regular physical activity, including walking, and plans to resume a gym routine. Her BMI falls within the obesity class 1 category. She has a family history of early cardiovascular disease, including a myocardial infarction in her father at age 45 and a premature myocardial infarction in her paternal grandmother. Current medications include rosuvastatin 10 mg daily and levothyroxine 100 mcg daily. 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 rosuvastatin (CRESTOR) 10 mg tablet Take 1 tablet by mouth once daily. fluticasone propionate (FLONASE NASAL) Use in the nose two times a day. levothyroxine (SYNTHROID) 100 mcg tablet DULoxetine (CYMBALTA) 60 mg capsule DULoxetine (CYMBALTA) 30 mg capsule Cetirizine 10 mg cap Take by mouth once daily. Multivitamin capsule Take 1 capsule by mouth once daily. (Patient not taking: Reported on 04/06/2025) No current facility-administered medications for this visit. ALLERGIES: ALLERGIES Allergen Reactions D And C Red No.40 Rash, Intolerance headache, burning in nose Shellfish Derived Shortness of Breath REVIEW OF SYSTEMS: CONSTITUTIONAL: No weight loss, malaise or fevers. HEENT: Negative for frequent or significant headaches, No changes in hearing or vision, no nose bleeds or other nasal problems. RESPIRATORY: Negative for cough, wheezing, or shortness of breath CARDIOVASCULAR: Negative for chest pain, leg swelling or palpitations GI: Negative for abdominal discomfort, blood in stools or black stools or change in bowel habits. : No history of dysuria, frequency, or incontinence and No difficulty urination, nocturia >1 times per night or hematuria. MUSCULOSKELETAL: Negative for joint pain or swelling, back pain or muscle pain. ENDOCRINE: Negative for cold or heat intolerance, polyuria, polydipsia and goiter HEMATOLOGIC/LYMPHATIC: Negative for prolonged bleeding, bruising easily or swollen nodes. NEUROLOGIC: No history or headaches, syncope, paralysis, seizures or tremors. INTEGUMENTARY: Negative for lesions, rash, and itching. PHYSICAL EXAMINATION: BP 111/77 (BP Site: Left Arm, BP Position: Sitting, BP Cuff Size: Regular Adult) Pulse 88 Ht 167.6 cm (5' 6) Wt 95.3 kg (210 lb) BMI 33.89 kg/m? GENERAL: Well nourished, non-obese, well-appeari (more content not included)... [facility] Evaluation note 03-15-2025 Note Date & Type Note Facility 03-15-2025 Evaluation note Diagnosis Onset Date Resolution Contraception management acute March 15, 2025 10:57am Encounter for routine gynecological examination noneactive March 15, 025 10:57am [facility] Work Phone: Evaluation note 03-15-2025 Note Date & Type Note Facility 03-15-2025 Evaluation note Diagnosis Onset Date Resolution Contraception management acute March 15, 2025 10:57am Encounter for routine gynecological examination noneactive March 15, 025 10:57am Family history of early CAD acute March 26, 2025 9:01am Anxiety and depression chronic Se pt2024 9:01am Hyperlipidemia chronic March 26, 2025 9:01am [facility] Work Phone: Evaluation note 09-20-2024 Note Date & Type Note Facility 09-20-2024 Evaluation note Diagnosis Onset Date Resolution Anxiety and depression acute [facility] 2024 9:26am Family history of early CAD acute September 20, 2024 9:26am Hypothyroid acute September 20, 025 9:26am Preventative health care acute September 20, 2024 9:26am [facility] Work Phone: Note 06-14-2023 Telephone Encounter - Lisette Serrano - 06/14/2023 8:07 PM ESTTelephone Encounter - Mike Lopez APRN.CNP - 06/14/2023 7:57 PM EST Note Date & Type Note Facility 06-14-2023 Miscellaneous Notes Formattin g of this note might be different from the original. Patient given results and verbalized understanding of instructions given.] Lisette Serrano COVID-19, influenza A, and influenza B PCR test are negative. Continue supportive therapies as discussed during visit. Follow-up with PCP if symptoms are not improving. Mike Lopez APRN.BRENDON documented in this encounter [facility] Evaluation note Note Date & Type Note Facility Evaluation note No assessment information availa [facility] Work Phone: Evaluation note Note Date & Type Note Facility Evaluation note Diagnosis Mixed hyperlipidemia- Primary documented in this encounter [facility] Evaluation note Note Date & Type Note Facility Evaluation note Diagnosis Onset Date Resolution Contraception management acute March 15, 2025 10:57am Encounter for routine gynecological examination noneactive March 15 10:57am [facility] Work Phone: Reason for referral (narrative) Note Date & Type Note Facility Reason for referral (narrative) No reason for referral information available [facility] Work Phone: Advance Directives No Advanced Directives Records Found Advance Directive Response Recorded Date/ Time Advance Directives No February 12 10:47am Living Will No February 13, 2016 10:47am Power of Operations Engineer No February 12 16 10:47am Advance Directive Response Recorded Date/ Time Advance Directives No February 12 10:47am Health Concerns Infection Onset Date Last Indicated Resolved Time COVID-19 Rule-Out 06/14/2023 06/14/2023 06/14/2023 7:21 PM EST Chief Complaint and Reason for Visit Chief Complaint Admit Date Annual (EVENT SPECIALIST PRODUCT DEMONSTRATOR) March 15, 2025 10:57am 6 M FU March 26, 2025 9:01am Reason for Visit Admit Date Contraception management March 15, 2025 10:57am Encounter for routine gynecological exam ination March 15, 2025 10:57am Chief Complaint Admit Date Booked from other vendor September 20 9:26am Reason for Visit Admit Date Anxiety and depression September 20, 2024 9:26am Family history of early CAD September 20, 2024 9:26am Hypothyroid September 20, 2024 9:2 6am Preventative health care September 20 9:26am Chief Complaint Admit Date Annual (EVENT SPECIALIST PRODUCT DEMONSTRATOR) March 15, 2025 10:57am Reason for Visit Admit Date Contraception management March 15, 2025 10:57am Encounter for routine gynecological exam ination March 15, 2025 10:57am Family history of early CAD March 262024 9:01am Anxiety and depression March 26, 2 025 9:01am Hyperlipidemia March 26, 2025 9:01am Family History No Family History Records Found Relationship Condition Age at Onset Recorded Date/T dilan mother Asthma Unknown Arthritis Unknown father Diabetes mellitus Unknown Cardiac disease Unknown Hypertension Unknown Myocardial infarction Unknown Hyperlipidemia Unknown grandfather Lupus Unknown grandfather Disorder of kidney Unknown Summary Purpose Additional Source Comments Goals (unrecognized section and content) Goals may be documented in a n alternate sectionGoals may be documented in an alternate sectionGoals may be documented in an alternate sectionGoals may be documented in an alternate sectionGoals may be documented in an alternate sectionGoals may be documented in an alternate sectionGoals may be documented in an alternate sectionGoals may be documented in an alternate sectionGoals may be documented in an alternate section Care Teams (unrecognized sec tion and content) Team Status: Active Member Role Status Dates Dr. Meghan May MD Family Provider Active Dr. Meghan May MD Primary Care Provider Active Team Status: Inactive Member Role Status Dates Dr. Meghan May MD Primary Care Prov ider, Attending Provider, Referring Provider Active Rehabilitation Clerk Relationship Specialty Start Date End Date Meghan May [address] [place] [address] PCP - General Family Medicine 06/14/23 Team Status: Inactive Member Role Status Dates Dr. Meghan May MD Primary Care Provider, Attendin g Provider Active Rehabilitation Clerk Relationship Specialty Start Date End Date Meghan May [address] [place] [address] (work) PCP - General Family Medicine 06/14/23 Team Status: Active Member Role Status Dates Dr. Meghan May MD Family Provider Active Dr. Amy Chan MD Primary Care Provider Active Team Status: Inactive Member Role Status Dates Dr. Meghan May MD Primary Care Provider Active Start: September 20, 2024 End: September 20, 2024 Dr. Meghan May MD Referring Provider Active Start: September 20, 2024 End: September 20, 2024 Dr. Amy Chan MD Attending Provider Active Start: September 20, 2024 End: September 20, 2024 Team Status: Inactive Member Role Status Dates Dr. Amy Chan MD Primary Care Provider Active Start: September 20, 2024 End: September 20, 2024 Dr. Amy Chan MD Attending Provider Active Start: September 20, 2024 End: September 20, 2024 Dr. Amy Chan MD Referring Provider Active Start: September 20, 2024 End: September 20, 2024 Team Status: Inactive Member Role Status Dates Dr. Amy Chan MD Primary Care Provider Active Start: October 17, 2024 End: October 17, 2024 Dr. Amy Chan MD Attending Provider Active Start: October 17, 2024 End: October 17, 2024 Team Status: Active Member Role/Relationship Status Dates Dr. Amy Chan MD Primary Care Provider Active Team Status: Inactive Member Role/Relationship Status Dates Dr. Amy Chan MD Primary Care Provider Active Start: March 15, 2025 End: March 15, 2025 Dr. Amy Chan MD Referring Provider Active Start: March 15, 2025 End: March 15, 2025 KATHY Day Attending Provider Active Start: March 15, 2025 End: March 15, 2025 Team Status: Inactive Member Role/Relationship Status Dates Dr. Amy Chan MD Primary Care Provider Active Start: March 15, 2025 End: March 15, 2025 KATHY Day Attending Provider Active Start: March 15, 2025 End: March 15, 2025 Team Status: Inactive Member Role/Relationship Status Dates Dr. Amy Chan MD Primary Care Provider Active Start: March 26, 2025 End: March 26, 2025 Dr. Amy Chan MD Attending Provider Active Start: March 26, 2025 End: March 26, 2025 Dr. Amy Chan MD Referring Provider Active Start: March 26, 2025 End: March 26, 2025 Team Status: Active Member Role/Relationship Status Dates Dr. Amy Chan MD Primary Care Provider Active Start: March 26, 2025 Dr. Amy Chan MD Attending Provider Active Start: March 26, 2025 Dr. Amy Chan MD Referring Provider Active Start: March 26, 2025 Team Status: Active Member Role/Relationship Status Dates Dr. Amy Chan MD Primary care physician Activ e Team Status: Inactive Member Role/Relationship Status Dates Dr. Amy Chan MD Primary care physician Activ e Start: March 15, 2025 End: March 15, 2025 Dr. Amy Chan MD Referring Provider Active Start: March 15, 2025 End: March 15, 2025 KATHY Day Attending physician Active Start: March 15, 2025 End: March 15, 2025 Team Status: Inactive Member Role/Relationship Status Dates Dr. Amy Chan MD Primary care physician Activ e Start: March 15, 2025 End: March 15, 2025 KATHY Day Attending physician Active Start: March 15, 2025 End: March 15, 2025 Team Status: Inactive Member Role/Relationship Status Dates Dr. Amy Chan MD Primary care physician Activ e Start: March 26, 2025 End: March 26, 2025 Dr. Amy Chan MD Attending physician Active Start: March 26, 2025 End: March 26, 2025 Dr. Amy Chan MD Referring Provider Active Start: March 26, 2025 End: March 26, 2025 Team Status: Inactive Member Role/Relationship Status Dates Dr. Amy Chan MD Primary care physician Activ e Start: March 26, 2025 End: March 26, 2025 Dr. Amy Chan MD Attending physician Active Start: March 26, 2025 End: March 26, 2025 Dr. Amy Chan MD Referring Provider Active Start: March 26, 2025 End: March 26, 2025 Source Comments (unrecognize d section and content) In the event this informatio n is protected by the Federal Confidentiality of Alcohol and Drug Abuse Patient Records regulations: The Federal rules restrict any use of the information to criminally investigate or prosecute any alcohol or drug abuse patient.[facility] the event this information is protected by the Federal Confidentiality of Alcohol and Drug Abuse Patient Records regulations: The Federal rules restrict any use of the information to criminally investigate or prosecute any alcohol or drug abuse patient.[facility] Reason for Visit (unrecogniz ed section and content) Reason Comments Results INFORMATION SOURCE (unrecogn ized section and content) DATE CREATED AUTHOR 04/04/2025 [facility] DATE CREATED AUTHOR AUTHOR'S ALIA SANDERS 05/11/2025 [facility] FOR RECORDS PERTAINING TO PATIENTS WHO ARE OR HAVE BEEN ENROLLED IN A CHEMICAL DEPENDENCY/SUBSTANCEABUSE PROGRAM, SOME INFORMATION MAY BE OMITTED. This clinical summary was aggregated from multiple sources. Caution should be exercised in using it in the provision of clinical care. This summary normalizes information from multiple sources, and as a consequence, information in this document may materially change the coding, format and clinical context of patient data. In addition, data may be omitted in some cases. CLINICAL DECISIONS SHOULD BE BASED ON THE PRIMARY CLINICAL RECORDS. [employer] [facility]. provides no warranty or guarantee of the accuracy or completeness of information in this document.
== END | disposition home or self-care (01) ==
LOC: LABSPEC 11:57
PROVIDERS: PCP Internal Medicine; Referring Provider Nurse Practitioner Family; Visit Provider Nurse Practitioner Family
DX: Z20.2 Contact with and (suspected) exposure to infections with a predominantly sexual mode of transmission (principal)
CPT/HCPCS: 87491; 87591